=== PATIENT | male | born 1965 | race Caucasian/White ===

== ENCOUNTER 2022-09-27 09:49 | Observation (INO) ==
--- NOTE | 2022-09-12 09:12 | PAT Medication Instructions ---
Medication Instructions Date of Service September 12, 2022 Home Medications Prevagen 1 tab PO QAM aspirin 81 mg chewable tablet 81 mg PO QAM atorvastatin 20 mg tablet 20 mg PO HS coenzyme Q10 100 mg capsule (CoQ-10) 100 mg PO QAM loratadine 10 mg tablet (Claritin) 10 mg PO QAM multivitamin 1 tab PO QAM omeprazole magnesium 20 mg tablet,delayed release (Prilosec OTC) 20 mg PO QAM ASK your prescriber and surgeon aspirin 81 mg chewable tablet 81 mg PO QAM STOP taking 2 weeks before surgery (or as soon as possible if surgery is within 2 weeks) Prevagen 1 tab PO QAM coenzyme Q10 100 mg capsule (CoQ-10) 100 mg PO QAM DO NOT take the morning of surgery loratadine 10 mg tablet (Claritin) 10 mg PO QAM multivitamin 1 tab PO QAM Take morning of surgery With a small sip of water, OTHERWISE NOTHING TO EAT OR DRINK AFTER MIDNIGHT: omeprazole magnesium 20 mg tablet,delayed release (Prilosec OTC) 20 mg PO QAM Take evening before surgery atorvastatin 20 mg tablet 20 mg PO HS Other Notes If you have any questions please call us at [phone] or [phone] or [phone] or [phone]
--- NOTE | 2022-09-14 13:50 | Anesthesiology Consultation ---
Date of Service September 14, 2022 Assessment & Plan (1) Encounter for pre-operative examination: Chart Review Chart Review: Acceptable Risk for Surgery (pending PCP clearance (09/14)) and Patient seen in Pre Admission Testing Awaiting PCP clearance scheduled 09/14/22 Per PAT appt on 06/15/22, patient denies any recent travel or large group activities. No known Covid positive exposures or Covid related symptoms. No known Covid infection in the past 90 days. Will leave to surgeon's discretion if preop Covid testing needed. Pt is fully vaccinated for Covid. Educated on importance of using Covid precautions one week prior to surgery History Surgery Operation Date: 09/27/22 07:45 Proposed Procedures p L5-S1 Decompression and Fusion, Spinal Cord Monitoring - Vicente Díaz DO Height/Weight Height: 5 ft 6 in Weight: 85.3 kg Allergies Allergy/AdvReac Type Severity Reaction Status Date / Time naproxen AdvReac Unknown "tears my Verified 09/11/22 13:06 stomach up bad" Medications Home Medications Medication Instructions Recorded Confirmed Last Taken Prevagen 1 tab PO QAM 09/11/22 09/11/22 Unknown aspirin 81 mg chewable tablet 81 mg PO QAM 09/11/22 09/11/22 Unknown atorvastatin 20 mg tablet 20 mg PO HS 09/11/22 09/11/22 Unknown coenzyme Q10 100 mg capsule 100 mg PO QAM 09/11/22 09/11/22 Unknown (CoQ-10) loratadine 10 mg tablet (Claritin) 10 mg PO QAM 09/11/22 09/11/22 Unknown multivitamin 1 tab PO QAM 09/11/22 09/11/22 Unknown omeprazole magnesium 20 mg 20 mg PO QAM 09/11/22 09/11/22 Unknown tablet,delayed release (Prilosec OTC) Past Medical History Medical History GERD (gastroesophageal reflux disease) Well controlled and stable History of COVID-19 10/2020, home test and CDC test at the tranfer station; mild head cold for 2 days, fatigue>resolved. Hx of fracture of nose History of; multiple fracture incidents - no recent issues No breathing issues related to nasal septum Hx of seasonal allergies Hyperlipidemia Sleep apnea No current treatment; CPAP recalled Spondylolisthesis, multiple sites in spine Exercise / Class Metabolic Activity II 4-5 Yardwork/Stairs/Walk up hill (one flight of stairs - no chest pain or SOB ) Past Surgical History Surgical History History of esophagogastroduodenoscopy (EGD) Hx of arthroscopic knee surgery Hx of colonoscopy Past Anesthesia History No Hx of Anesthesia Complications and No Family Hx of Anesthesia Complications History of PONV No Hx of PONV and No Hx of Motion Sickness Social History Smoking Status: Current some day smoker tobacco type: cigars Smoking cigarettes per day: 3-4 per year Do You Dip or Chew Tobacco: No Hx Alcohol Use: Yes Alcohol type: beer and hard liquor alcohol intake frequency: a few times a week Hx Substance Use: No substance use type: does not use Review of Systems Patient denies chest pain, shortness of breath, dyspnea on exertion, cough, wheezing, palpitations. No hx of seizures, stroke, [place]. No hx of blood clots or blood transfusions Physical Exam Vital Signs VITALS BP 156/71 P 89 TEMP 98.6 SP02 97% RES 16P Constitutional no acute distress ENMT Mouth: no TMJ clicking Thyromental Distance: > or= 3.5 Finger Breadths (4.0) Mallampati Class: I Crowns to molars Neck + limited neck extension (minimal) and + facial hair (advised to shave ) Respiratory normal respiratory effort; no respiratory distress Auscultation: lungs clear to auscultation bilaterally; no wheezes Cardiovascular Rate/Rhythm: regular rate and regular rhythm Heart Sounds: no murmur Vessels: no carotid bruit Musculoskeletal Spine: no pain with cervical ROM Extremities: extremities normal to inspection Psychiatric Orientation: alert Lab Results Anesthesia Preop Results Results Anesthesia Widget: WBC 6.68 K/ul (4.8-10.8) 09/14/22 Hgb 14.2 g/dl (14.0-18.0) 09/14/22 Hct 41.0 % (40.1-51.0) 09/14/22 Plt 188 K/uL (130-400) 09/14/22 Na 138 mmol/L (136-145) 09/14/22 K 3.7 mmol/L (3.5-5.1) 09/14/22 Cl 104 mmol/L (98-107) 09/14/22 CO2 28 mmol/L (21-32) 09/14/22 BUN 13 mg/dl (6-23) 09/14/22 Creat 0.86 mg/dl (0.6-1.4) 09/14/22 Glucose Level 107 mg/dl (70-99(Fasting)) H 09/14/22 PT 11.3 Seconds (9.0-12.0) 09/14/22 PTT 30.4 Seconds (21.0-31.0) 09/14/22 INR 1.1 (0.9-1.1) 09/14/22 Urine Color Yellow 09/14/22 Urine Appearance Clear (Clear) 09/14/22 Urine pH 6.5 (4.5-7.5) 09/14/22 Urine Specific [place] 1.012 (1.000-1.030) 09/14/22 Urine Protein Negative (Negative) 09/14/22 Urine Glucose (UA) Negative (Negative) 09/14/22 Urine Ketones Negative (Negative) 09/14/22 Urine Blood Negative (Negative) 09/14/22 Urine Nitrite Negative (Negative) 09/14/22 Urine Bilirubin Negative (Negative) 09/14/22 Urine Urobilinogen Negative (Negative) 09/14/22 Urine Leukocyte Esterase Negative (Negative) 09/14/22 Blood Type O Positive 09/14/22 Antibody Screen NEGATIVE 09/14/22 Testing Electrocardiogram Date: 09/14/22 Findings: + NSR @ (82bpm) Incomplete RBBB. Chest X-Ray Date: 09/14/22 Findings: + NAD
[~2022-09-27 09:49] MED LIST: ACETAMINOPHEN 500 MG TAB PO SCH; CeleBREX 200 MG CAP PO SCH; GABAPENTIN 600 MG DOSE PO SCH; LR 15ML/HR IV SCH; ceFAZolin 2000MG 2,000 MG/15 ML SYR IV SCH
[2022-09-27] MEDS ORDERED: fentaNYL citrate 100 MCG/2 ML VIAL ONE (10:38)
[2022-09-27] MEDS ORDERED: PROPOFOL IV EMULSION 10 MG/ML 20 ML VIAL IV ONE (10:38)
[2022-09-27] MEDS ORDERED: LIDOCAINE 2% 20 MG/ML 5 ML SYR IV ONE (10:38)
[2022-09-27] MEDS ORDERED: ROCURONIUM BROMIDE 10 MG/ML 5 ML VIAL IV ONE ×3 (10:38→12:11)
[2022-09-27] MEDS ORDERED: MIDAZOLAM HCL 1 MG/ML 2ML VIAL ONE (10:38)
--- NOTE | 2022-09-27 11:03 | History & Physical Bridge Note ---
Date of Service September 27, 2022 History & Physical Bridge Note I have examined the patient, reviewed the History & Physical and in the interval since the performance of the History & Physical I have noted the following changes of clinical significance: no changes noted
--- NOTE | 2022-09-27 11:04 | History & Physical Report ---
Date of Service September 27, 2022 Assessment & Plan (1) Neurogenic claudication due to lumbar spinal stenosis: Plan: L5-S1 decompression and fusion History of Present Illness Chief Complaint: Back and leg pain Primary Care Provider: Ad Sanders MD This is a 49-year-old male presents with chronic persistent back and leg pain. Failed extensive course of nonoperative care is here for surgical invention. Allergies Allergy/AdvReac Type Severity Reaction Status Date / Time naproxen AdvReac Unknown "tears my Verified 09/27/22 10:15 stomach up bad" Home Medications Medication Instructions Recorded Confirmed Type Prevagen 1 tab PO QAM 09/11/22 09/27/22 History aspirin 81 mg chewable tablet 81 mg PO QAM 09/11/22 09/27/22 History atorvastatin 20 mg tablet 20 mg PO HS 09/11/22 09/27/22 History coenzyme Q10 100 mg capsule 100 mg PO QAM 09/11/22 09/27/22 History (CoQ-10) loratadine 10 mg tablet (Claritin) 10 mg PO QAM 09/11/22 09/27/22 History multivitamin 1 tab PO QAM 09/11/22 09/27/22 History omeprazole magnesium 20 mg 20 mg PO QAM 09/11/22 09/27/22 History tablet,delayed release (Prilosec OTC) Past Med/Surg History Medical History GERD (gastroesophageal reflux disease) Well controlled and stable History of COVID-19 10/2020, home test and CDC test at the tranfer station; mild head cold for 2 days, fatigue>resolved. Hx of fracture of nose History of; multiple fracture incidents - no recent issues No breathing issues related to nasal septum Hx of seasonal allergies Hyperlipidemia Sleep apnea No current treatment; CPAP recalled Spondylolisthesis, multiple sites in spine Surgical History History of esophagogastroduodenoscopy (EGD) Hx of arthroscopic knee surgery Hx of colonoscopy Social History Smoking Status: Current some day smoker Cigarettes Per Day: 3-4 per year; Second Hand Exposure: No; Do You Dip or Chew Tobacco: No; Tobacco Cessation Education Requested by Patient: No Hx Alcohol Use: Yes Alcohol type: beer and hard liquor Hx Substance Use: No Preferred Language: Telugu Communication Ability: Effective Filter Press Pumper Required: No Beliefs That Will Affect Care: None Current Living Situation: Spouse Other Information That Helps Us Care for You: No Feels Safe at Home: Yes Safety Concerns: Feels Safe At This Time Assistive Devices: Hearing Aid - Left Assistive Devices Comment: doesn't wear his WORKMAN often Physical Exam Physical Exam: Patient is alert and oriented Heart regular rhythm Lungs clear Results & Data Results & Data ([facility]) Vital Signs (Past 12 Hours) Vital Signs Temp Pulse Resp BP Pulse Ox O2 Del Method 09/27/22 10:19 Room Air 09/27/22 10:19 36.7 C 60 20 172/89 H 98 Room Air
[2022-09-27] MEDS ORDERED: ePHEDrine sulfate 50 MG/ML AMP IV PRN (11:06)
[2022-09-27] MEDS ORDERED: fentaNYL citrate 100 MCG/2 ML VIAL IV PRN (11:06)
[2022-09-27] MEDS ORDERED: ONDANSETRON INJ 2 MG/ML 2 ML VIAL IV PRN ×2 (11:06→15:29)
[2022-09-27] MEDS ORDERED: HYDROmorphone INJ 2 MG/ML SYR/VIAL IV PRN (11:06)
[2022-09-27] MEDS ORDERED: ATROPINE SULFATE 0.1 MG/ML 10ML SYR IV PRN (11:06)
[2022-09-27] MEDS ORDERED: BUPIVACAINE/EPINEPHRINE 0.25% 1:200,000 30 ML VIAL ONE (11:12)
[2022-09-27] MEDS ORDERED: ceFAZolin 330 MG/ML 1 GM VIAL ONE (11:12)
[2022-09-27] MEDS ORDERED: FLOSEAL HEMOSTATIC MATRIX 10ML TOP ONE (12:11)
[2022-09-27] MEDS ORDERED: ePHEDrine sulfate 50 MG/ML SYR ONE (12:23)
[2022-09-27] MEDS ORDERED: DEXAMETHASONE SOD INJ 4 MG/ML VIAL ONE (12:31)
--- NOTE | 2022-09-27 13:20 | Operative Report ---
Post Operative Report Pre & Post Diagnosis Operation Date: 09/27/22 11:25 Pre-Op Diagnosis: Spondylolisthesis, Lumbar Region Post-Op Diagnosis: Spondylolisthesis, Lumbar Region I identified the patient and participated in the time-out.: Yes Procedure Operation Date: 09/27/22 11:25 Actual Procedures #1 lumbar decompression with bilateral medial facetectomies and foraminotomies L4-L5 L5-S1. #2 posterior spinal fusion L5-S1. #3 placement posterior instrumentation L5-S1. #4 interbody fusion L5-S1. #5 placement of Spira 15 x 26 mm cage at L5-S1. #6 placement locally harvested morselized autograft in the posterior gutters. #7 placement of I factor model V toss interbody space and posterior gutters. Surgeon Vicente Díaz, Motor Vehicles Inspector Yue Velasquez Estimated Blood Loss 200 Findings Consistent with Post-Op Diagnosis Specimens None Indications This is a 49-year-old male who presents above-mentioned diagnosis after failed extensive course of nonoperative care is here for surgical invention. Description of Procedure Patient was met with identified informed consent obtained. Patient was then taken to the operative suite underwent a patient placed in a prone position the [place] table top Jabier frame. All bony prominences well-padded eyes inspected to ensure no external pressure placed upon the. This point the lumbar spine was prepped and draped in normal sterile fashion. Sharp dissection with the assistance of Bovie cardiac form down to and exposing the lamina and transverse processes of L5 and sacral ala bilaterally. From caudal to cephalad fashion complete laminectomy of L5 partial laminectomy of L4 was performed including bilateral medial facetectomies and foraminotomies addressing severe spinal stenosis. Pedicle screws were placed in L5 and S1 levels bilaterally with assistance of fluoroscopy and the properly sized paz placed. By way of transfor aminal approach on the right complete discectomy of L5-S1 was performed endplates curetted to subcortical bleeding bone and a 15 x 26 mm spiral cage with I factor tapped in position. The rods then compressed locked into final position bilaterally. The transverse processes of L5 and sacral ala burred to subcortical bleeding bone. I factor combined with V toss and locally harvested morselized autograft was placed in the posterior gutters. 15 round JOSEFINA drain inserted. Incision was then closed with 1 Vicryl the fascia 2-0 Vicryl subcutaneously and 4 Monocryl for final skin closure. Steri-Strip sterile dressings placed. Patient waken taken to PACU in stable condition. Please note spinal cord monitoring was utilized at the procedure no changes noted. Lastly Yue Velasquez was present at the entire surgery involved the patient positioning complex portions of the surgery and final skin closure. I attest to the content of the Intraoperative Record and any orders documented therein. Any exceptions are noted below.
--- NOTE | 2022-09-27 14:00 | Fluoroscopy Report ---
INTRAOPERATIVE RADIOGRAPHS CLINICAL HISTORY: L5-S1 spinal fusion. Fluoroscopy time: 21 seconds. FINDINGS: 2 spot fluoroscopic views of the lumbar spine are presented. There has been discectomy at L 5-S1 with laminectomy and posterior fusion at this level. Interpedicular screws are in place. There i s minimal anterolisthesis at L5-S1. The orthopedic hardware appears intact. IMPRESSION: Intraoperative images from L5-S1 spinal fusion as above. Electronically signed by: Figueroa Ji M.D. 09/27/2022 1:59 PM
--- NOTE | 2022-09-27 14:19 | Anesthesiology Progress Note ---
Date of Service September 27, 2022 Anesthesia Post Procedure Vital Signs Vital Signs: Temp Pulse Pulse Resp BP Pulse Ox O2 Del Method 09/27/22 14:10 55 L 12 116/68 97 Room Air 09/27/22 14:00 61 19 134/78 100 Oxymask 09/27/22 13:50 69 12 115/77 99 Oxymask 09/27/22 13:42 36.3 C L 91 H 16 119/87 96 Oxymask 09/27/22 10:19 Room Air 09/27/22 10:19 36.7 C 60 20 172/89 H 98 Room Air O2 Flow Rate 09/27/22 14:10 09/27/22 14:00 2 09/27/22 13:50 6 09/27/22 13:42 6 09/27/22 10:19 09/27/22 10:19 Pain Intensity Bilateral Back: Pain Intensity: 1 Back: Pain Intensity: 3 Transfer of Care Handoff Completed per policy Notes Mental Status: alert / awake / arousable and participated in evaluation Patient Amnestic to Procedure: Yes Nausea / Vomiting: adequately controlled Pain: adequately controlled Airway Patency, RR, SpO2: stable & adequate BP & HR: stable & adequate Hydration State: stable & adequate Anesthetic Complications: no major complications apparent and Pt Satisfied with anesthetic care
[2022-09-27] MEDS ORDERED: LORazepam 0.5 MG TAB PO PRN (15:29)
[2022-09-27] MEDS ORDERED: LORazepam 0.5 MG in SYRINGE 0 ML IV PRN (15:29)
[2022-09-27] MEDS ORDERED: DO NOT ADMINISTER FLU VACCINE PRN (15:29)
[2022-09-27] MEDS ORDERED: HYDROmorphone INJ 1 MG/ML SYRINGE IV PRN (15:29)
[2022-09-27] MEDS ORDERED: PROMETHAZINE HCL 12.5 MG in SODIUM CHLORIDE 0.9% 50 ML IV PRN (15:29)
[2022-09-27] MEDS ORDERED: METOCLOPRAMIDE HCL INJ 5 MG/ML 2 ML VIAL IV PRN (15:29)
[2022-09-27] MEDS ORDERED: hydrOXYzine HCl 25 MG TAB PO PRN (15:29)
[2022-09-27] MEDS ORDERED: bisacodyL 10 MG SUPP PR PRN (15:29)
[2022-09-27] MEDS ORDERED: ACETAMINOPHEN 1,000 MG/100 ML VIAL IV PRN (15:29)
[2022-09-27] MEDS ORDERED: ALUMINUM/MAGNESIUM SUSP 30 ML UDC PO PRN (15:29)
[2022-09-27] MEDS ORDERED: ONDANSETRON 4 MG OD TAB PO PRN (15:29)
[2022-09-27] MEDS ORDERED: FAMOTIDINE 20 MG TAB PO PRN (15:29)
[2022-09-27] MEDS ORDERED: NALOXONE HCL 0.4 MG/1 ML VIAL/CARP IV PRN (15:29)
[2022-09-27] MEDS ORDERED: diphenhydrAMINE Capsule 25 MG CAP PO PRN (15:29)
[2022-09-27] MEDS ORDERED: MAGNESIUM HYDROXIDE SUSP 30 ML UDC PO PRN (15:29)
[2022-09-27] MEDS ORDERED: traMADol HCL 50 MG TABLET PO PRN (15:29)
[2022-09-27] MEDS ORDERED: oxyCODONE HCL IR 5 MG TAB (IMMEDIATE RELEASE) PO PRN (15:29)
[2022-09-27] MEDS ORDERED: DO NOT ADMINISTER PNEUMOCOCCAL VACCINE PRN (15:29)
[2022-09-27] MEDS ORDERED: SOD PHOSPHATE/SOD BIPHOSPHATE ENEMA 132 ML BTL PR PRN (15:29)
[2022-09-27] MEDS: LACTATED RINGER'S 1,000 ML IV SCH (15:46)
[2022-09-27] MEDS: HYDROmorphone INJ 0.5 MG/0.5 ML SYR IV PRN (17:20)
--- NOTE | 2022-09-27 17:57 | Hospitalist Consultation ---
Date of Consultation September 27, 2022 Assessment & Plan (1) Neurogenic claudication due to lumbar spinal stenosis: POD#0 L5-S1 decompression and fusion by Dr. Díaz Activity and wound care orders as per ortho Pain control with bowel regimen PT/OT Monitor H/H for acute blood loss anemia and transfuse blood products PRN EBL 200 cc (2) Sleep apnea: Patient has not had a CPAP at home due to his home device being recalled CPAP ordered while inpatient according to previous outpatient settings (3) GERD (gastroesophageal reflux disease): Continue PPI (4) Hyperlipidemia: Continue statin (5) DVT prophylaxis: TEDs/SCDs as per spine Ortho Thank you for this consultation. We will follow the patient with you during their hospital stay. You can reach a [facility] via the [facility] role in [place] Text. Supervising Physician Co-Signing Physician Notes I have seen and examined the patient and have discussed the case with the provider above. I agree with the assessment and plan as stated. 57 yo M s/p lumbar spine surgery. Doing well post operatively. Denies pain or numbess in legs. Pain is well managed with medications. No chest pain or SOB. My exam reflects that listed above. Cont post op management per ortho spine and cont medical management as outlined above. DO Otilio History of Present Illness Reason for Consultation: Postop medical management Requesting Physician: Dr. Díaz Attending Physician: Vicente Díaz DO History of Present Illness 57-year-old male with PMH dyslipidemia, YOMI, GERD, seasonal allergies, and other problems listed below who is s/p L5-S1 decompression and fusion today by Dr. Díaz. Postoperatively, the patient is doing well. He reports his pain is well controlled. He denies numbness, tingling, weakness of the lower extremities. No chest pain or shortness of breath. He denies abdominal pain and nausea. He has not voided since surgery. Allergies Allergy/AdvReac Type Severity Reaction Status Date / Time naproxen AdvReac Unknown "tears my Verified 09/27/22 10:15 stomach up bad" Home Medications Medication Instructions Recorded Confirmed Type Prevagen 1 tab PO QAM 09/11/22 09/27/22 History aspirin 81 mg chewable tablet 81 mg PO QAM 09/11/22 09/27/22 History atorvastatin 20 mg tablet 20 mg PO HS 09/11/22 09/27/22 History coenzyme Q10 100 mg capsule 100 mg PO QAM 09/11/22 09/27/22 History (CoQ-10) loratadine 10 mg tablet (Claritin) 10 mg PO QAM 09/11/22 09/27/22 History multivitamin 1 tab PO QAM 09/11/22 09/27/22 History omeprazole magnesium 20 mg 20 mg PO QAM 09/11/22 09/27/22 History tablet,delayed release (Prilosec OTC) Patient History Medical History GERD (gastroesophageal reflux disease) Well controlled and stable History of COVID-19 10/2020, home test and CDC test at the tranfer station; mild head cold for 2 days, fatigue>resolved. Hx of fracture of nose History of; multiple fracture incidents - no recent issues No breathing issues related to nasal septum Hx of seasonal allergies Hyperlipidemia Sleep apnea No current treatment; CPAP recalled Spondylolisthesis, multiple sites in spine Surgical History History of esophagogastroduodenoscopy (EGD) Hx of arthroscopic knee surgery Hx of colonoscopy Family History (Updated 09/27/22 @ 17:54 by GODFREY Sams) Father Hypertension Mother Hypertension Social History Smoking Status: Current some day smoker Cigarettes Per Day: 3-4 per year; Second Hand Exposure: No; Do You Dip or Chew Tobacco: No; Tobacco Cessation Education Requested by Patient: No Hx Alcohol Use: Yes Alcohol type: beer and hard liquor Hx Substance Use: No Preferred Language: Greek Communication Ability: Effective Barrel Rifler Hook Required: No Beliefs That Will Affect Care: None Current Living Situation: Spouse Other Information That Helps Us Care for You: No Feels Safe at Home: Yes Safety Concerns: Feels Safe At This Time Assistive Devices: Hearing Aid - Left Assistive Devices Comment: doesn't wear his WORKMAN often Review of Systems Review of Systems: ROS per HPI, all other systems reviewed and negative Physical Exam Constitutional: WD/WN, vitals as above Eyes: PERRL, conjunctivae normal, anicteric sclerae ENMT: external ear and nose normal, oropharynx normal Respiratory: normal respiratory effort, lungs clear to auscultation Cardiovascular: Rate/Rhythm: regular rate and regular rhythm Vessels: normal peripheral pulses Extremities: no edema Gastrointestinal (Abdomen): normal bowel sounds, soft, nontender, no hepatosplenomegaly Musculoskeletal: no cyanosis or clubbing, extremities motor strength 5/5 S/p back surgery, pedal pushes and pull strong bilaterally, drain in place draining bloody drainage Skin: no rashes, warm and dry Neurologic: no focal motor deficits Psychiatric: A+Ox3, euthymic affect Results & Data Results & Data ([facility]) Vital Signs (Past 12 Hours) Vital Signs Temp Pulse Pulse Pulse Resp BP BP 09/27/22 17:21 88 16 129/82 09/27/22 16:17 75 18 126/74 09/27/22 15:44 51 L 16 135/81 09/27/22 15:11 36.6 C 74 16 124/74 09/27/22 14:50 62 12 125/63 09/27/22 14:20 36.8 C 69 12 136/72 09/27/22 14:10 55 L 12 116/68 09/27/22 14:00 61 19 134/78 09/27/22 13:50 69 12 115/77 09/27/22 13:42 36.3 C L 91 H 16 119/87 09/27/22 10:19 09/27/22 10:19 36.7 C 60 20 172/89 H Pulse Ox O2 Del Method O2 Flow Rate 09/27/22 17:21 95 Room Air 09/27/22 16:17 96 Room Air 09/27/22 15:44 96 Room Air 09/27/22 15:11 94 Room Air 09/27/22 14:50 99 Room Air 09/27/22 14:20 95 Room Air 09/27/22 14:10 97 Room Air 09/27/22 14:00 100 Oxymask 2 09/27/22 13:50 99 Oxymask 6 09/27/22 13:42 96 Oxymask 6 09/27/22 10:19 Room Air 09/27/22 10:19 98 Room Air Medications Administered Current Inpatient Medications Acetaminophen (Acetaminophen 500 Mg Tab) 1,000 mg PO Q8H PRN PRN Reason: MILD Pain Scale 1,2,3 & Pre PT Stop: 10/27/22 15:28 Al Hydrox/Mg Hydrox/Simethicone (Aluminum/Magnesium Susp 30 Ml Udc) 30 ml PO Q6H PRN PRN Reason: Dyspepsia Stop: 10/27/22 15:28 Aspirin (Aspirin 81 Mg Ectab) 81 mg PO QAM JASBIR Stop: 10/28/22 08:59 Atorvastatin Calcium (Atorvastatin 20 Mg Tab) 20 mg PO HS JASBIR Stop: 10/27/22 20:59 Bisacodyl (Bisacodyl 10 Mg Supp) 10 mg MO DAILY PRN PRN Reason: Constipation Stop: 10/27/22 15:28 Diphenhydramine HCl (Diphenhydramine Capsule 25 Mg Cap) 25 mg PO Q6H PRN PRN Reason: Allergic Rhinitis/Insomnia Stop: 10/27/22 15:28 Famotidine (Famotidine 20 Mg Tab) 20 mg PO Q12H PRN PRN Reason: Dyspepsia Stop: 10/27/22 15:28 Hydromorphone HCl (Hydromorphone Inj 0.5 Mg/0.5 Ml Syr) 0.5 mg IV Q3H PRN PRN Reason: MODERATE Pain (Scale 4,5,6) & Pre PT Stop: 10/11/22 15:28 Last Admin: 09/27/22 17:20 Dose: 0.5 mg Hydromorphone HCl (Hydromorphone Inj 1 Mg/Ml Syringe) 1 mg IV Q3H PRN PRN Reason: SEVERE Pain (Scale 7,8,9,10) Stop: 10/11/22 15:28 Hydroxyzine HCl (Hydroxyzine Hcl 25 Mg Tab) 25 mg PO Q8H PRN PRN Reason: Anxiety Stop: 10/27/22 15:28 Lactated Ringer's (Lr) 1,000 mls @ 100 mls/hr IV .Q10H JASBIR Stop: 10/27/22 15:28 Last Admin: 09/27/22 15:46 Dose: 100 mls/hr Promethazine HCl 12.5 mg/ (Sodium Chloride) 50.5 mls @ 202 mls/hr IV Q6H PRN PRN Reason: Nausea &/or Vomiting Stop: 10/27/22 15:28 Acetaminophen (Ofirmev) 1,000 mg in 100 mls @ 400 mls/hr IV Q8H PRN PRN Reason: Pain Rating 1-3 & Pre PT Stop: 09/28/22 15:30 Cefazolin Sodium (Ancef 2000mg) 2,000 mg in 15 mls @ 3.75 mls/min IV Q8H [facility]; Protocol Stop: 09/28/22 03:33 Last Admin: 09/27/22 19:46 Dose: 3.75 mls/min Lorazepam 0.5 mg/ Syringe 0.5 mls @ 2 mls/min IV Q8H PRN PRN Reason: Sedation/Anxiety Stop: 10/27/22 15:28 Dexamethasone 6 mg/ Syringe 1.5 mls @ 1 mls/min IV DAILY [facility] Stop: 09/30/22 09:02 Influenza Virus Vaccine Quadrival (Do Not Administer Flu Vaccine) 1 each N/A PRN PRN PRN Reason: Notification Stop: 10/27/22 15:28 Loratadine ([facility] 10 Mg Tab) [facility] Stop: 10/28/22 08:59 Lorazepam (Lorazepam 0.5 Mg Tab) 0.5 mg PO Q8H PRN PRN Reason: Sedation/Anxiety Stop: 10/27/22 15:28 Magnesium Hydroxide (Magnesium Hydroxide Susp 30 Ml Udc) 30 ml PO Q24H PRN PRN Reason: Constipation Stop: 10/27/22 15:28 Metoclopramide HCl (Metoclopramide Hcl Inj 5 Mg/Ml 2 Ml Vial) 10 mg IV Q6H PRN PRN Reason: Nausea &/or Vomiting Stop: 10/27/22 15:28 Multivitamins (Multivitamin Tab) 1 tab PO [facility] Stop: 10/28/22 08:59 Naloxone HCl (Naloxone Hcl 0.4 Mg/1 Ml Vial/Carp) 0.1 mg IV Q5M PRN PRN Reason: Oversedation/Resp depression Stop: 10/27/22 15:28 Ondansetron HCl (Ondansetron Inj 2 Mg/Ml 2 Ml Vial) 4 mg IV Q6H PRN PRN Reason: Nausea &/or Vomiting Stop: 10/27/22 15:28 Ondansetron HCl (Ondansetron 4 Mg Od Tab) 4 mg PO Q6H PRN PRN Reason: Nausea Stop: 10/27/22 15:28 Oxycodone HCl (Oxycodone Hcl Ir 5 Mg Tab (Immediate Release)) 5 - 10 mg PO Q4H PRN PRN Reason: Pain & Pre PT Stop: 10/11/22 15:28 Pantoprazole Sodium (Pantoprazole 40 Mg Tab) 40 mg PO QAM JASBIR Stop: 10/28/22 08:59 Pneumococcal Polyvalent Vaccine (Do Not Administer Pneumococcal Vaccine) 1 each N/A PRN PRN PRN Reason: Notification Stop: 10/27/22 15:28 Polyethylene Glycol (Polyethylene (Miralax) 17 Gm Pack) 17 gm PO Q6 JASBIR Stop: 10/28/22 05:59 Senna/Docusate Sodium (Docusate Sodium/Senna 50/8.6mg Tab) 2 tab PO HS JASBIR Stop: 10/27/22 20:59 Sodium Biphosphate/Sodium Phosphate (Sod Phosphate/Sod Biphosphate Enema 132 Ml Btl) 132 ml MO ONE PRN PRN Reason: Constipation Stop: 10/27/22 15:28 Tramadol HCl (Tramadol Hcl 50 Mg Tablet) 50 - 100 mg PO Q4H PRN PRN Reason: Moderate-Severe pain & Pre PT Stop: 10/27/22 15:28
[2022-09-27] MEDS: ceFAZolin 2000MG 2,000 MG/15 ML SYR IV SCH (19:46)
[2022-09-27] MEDS: DOCUSATE SODIUM/SENNA 50/8.6MG TAB PO SCH (20:38)
[2022-09-27] MEDS: ATORVASTATIN 20 MG TAB PO SCH (20:38)
[2022-09-28] MEDS: LACTATED RINGER'S 1,000 ML IV SCH (01:09)
[2022-09-28] MEDS: HYDROmorphone INJ 0.5 MG/0.5 ML SYR IV PRN (03:00)
[2022-09-28] MEDS: ceFAZolin 2000MG 2,000 MG/15 ML SYR IV SCH (03:00)
[2022-09-28] MEDS: POLYETHYLENE (MIRALAX) 17 GM PACK PO SCH ×4 (05:22→23:20)
[2022-09-28 07:30] LABS: Basophils # (auto) 0.01 K/uL (0-0.2); Basophils % (auto) 0.1 %; Hematocrit (blood only) 36.4 % (40.1-51.0); Hemoglobin 12.6 g/dl (14.0-18.0); Immature Granulocytes # (auto) 0.05 K/uL (0.00-0.02); Immature Granulocytes % (auto) 0.4 %; Lymphocytes # (auto) 0.85 K/uL (1.2-3.4); Lymphocytes % (auto) 6.4 %; Mean Corpuscular Hemoglobin 30.4 pg (25.0-34.0); Mean Corpuscular Hgb Conc 34.6 g/dL (32.0-36.0); Mean Corpuscular Volume 87.9 fL (80.0-100.0); Mean Platelet Volume 9.4 fL (9.4-12.4); Monocytes # (auto) 1.21 K/uL (0.24-0.82); Monocytes % (auto) 9.1 %; Neutrophils # (auto) 11.18 K/uL (1.4-6.5); Platelet Count 196 K/uL (130-400); RDW Coefficient of Variation 12.7 % (11.5-14.5); RDW Standard Deviation 40.6 fL (36.4-46.3); Red Blood Count 4.14 M/uL (4.63-6.08)
[2022-09-28 07:54] LABS: Calcium 8.8 mg/dl (8.5-10.1); Creatinine Clr Calc Pharmacy 102.5 ml/min; Est GFR (African American) 114.7 ml/min; Potassium 4.1 mmol/L (3.5-5.1)
[2022-09-28] MEDS ORDERED: NON-FORMULARY MEDICATION (Coenzyme Q10 [Coq-10] 100 mg Capsule) PO SCH (09:00)
[2022-09-28] MEDS ORDERED: NON-FORMULARY MEDICATION (Prevagen 1 TAB) PO SCH (09:00)
[2022-09-28] MEDS: LORATADINE 10 MG TAB PO SCH ×2 (09:24→10:40)
[2022-09-28] MEDS: MULTIVITAMIN TAB PO SCH (09:24)
[2022-09-28] MEDS: ASPIRIN 81 MG ECTAB PO SCH (09:24)
[2022-09-28] MEDS: dexAMETHasone 6 MG in SYRINGE 0 ML IV SCH (09:24)
[2022-09-28] MEDS: PANTOprazole 40 MG TAB PO SCH (09:25)
[2022-09-28] MEDS ORDERED: Nursing to Pharmacy Communication SCH (10:15)
--- NOTE | 2022-09-28 11:18 | Orthopedic Progress Note ---
Date of Service September 28, 2022 Assessment & Plan (1) Neurogenic claudication due to lumbar spinal stenosis: Plan: Today we will initiate physical therapy monitor his JOSEFINA output possible discharge home tomorrow. Admission and Anticipated Discharge Date Admission Date: September 27, 2022 Subjective Patient's back pain is controlled leg symptoms improved Physical Exam Physical Exam: Patient is comfortable. Is good strength testing. Results & Data ([facility]) Vital Signs (Past 12 Hours) Vital Signs Temp Pulse Pulse Resp BP Pulse Ox O2 Del Method 09/28/22 08:43 36.9 C 74 18 142/77 H 97 Room Air 09/28/22 03:00 36.8 C 83 16 132/70 96 CPAP 09/28/22 03:00 99 H 12 94 09/28/22 01:19 100 H 25 H 94 09/27/22 23:47 37.2 C 105 H 18 144/85 H 94 Room Air
--- NOTE | 2022-09-28 11:56 | Hospitalist Progress Note ---
Date of Service September 28, 2022 Assessment & Plan (1) Neurogenic claudication due to lumbar spinal stenosis: Plan: POD#1 L5-S1 decompression and fusion by Dr. Díaz Activity and wound care orders as per ortho Pain control with bowel regimen PT/OT Current Hgb 12.6 (down from 14 pre-op) This is expected, post-op vs. dilutional, no need for blood transfusion Monitor H/H for acute blood loss anemia and transfuse blood products PRN (2) Sleep apnea: Plan: Patient has not had a CPAP at home due to his home device being recalled CPAP ordered while inpatient according to previous outpatient settings (3) GERD (gastroesophageal reflux disease): Plan: Continue PPI (4) Hyperlipidemia: Plan: Continue statin (5) DVT prophylaxis: Plan: TEDs/SCDs as per spine Ortho Thank you for this consultation. We will follow the patient with you during their hospital stay. You can reach a member of the [facility] Hospitalist Team 21/05 via the [facility] Hospitalist role in [place] Text. Admission and Anticipated Discharge Date Admission Date: September 27, 2022 Subjective Pt seen in follow up of med consult after lumbar spine surgery Patient is currently sitting up in bed, in no acute distress Denies any fevers chills, chest pain, shortness of breath Reports ambulating in hallways Denies any abdominal pain, nausea vomiting Reports voiding without difficulty, passing flatus, no BM Pain seems to be reasonably controlled Review of Systems Review of Systems: All systems reviewed & are unremarkable except as noted in Subjective Physical Exam 2 Physical Exam: Constitutional:L WD/WN, vitals as a rosario Eyes: PERRL, EOMI, conju nctivae normal, an icteric sclerae ENMT: external ear and n ose normal, oropha rynx normal Respiratory: normal respiratory effort, lungs tyrone ar to auscultation Cardiovascular:L Rate/Rhythm: regul ar rate and regula r rhythm Vessels: normal peripheral pulses Extremiti es: no edema Gastrointestinal ( Abdomen): normal bowel sound s, soft, nontender Musculoskeletal: extremities motor strength 5/5 S/p back surgery, ped al pushes and pull strong bilaterall y, drain in place draining serosang. drainage Skin: no rashes, warm an d dry Neurologic: no focal motor def icits Psychiatric: A+Ox3, euthymic af fect Results & Data Results & Data ([facility]) Vital Signs (Past 12 Hours) Vital Signs Temp Pulse Pulse Resp BP Pulse Ox O2 Del Method 09/28/22 08:43 36.9 C 74 18 142/77 H 97 Room Air 09/28/22 03:00 36.8 C 83 16 132/70 96 CPAP 09/28/22 03:00 99 H 12 94 09/28/22 01:19 100 H 25 H 94 Laboratory Results 09/28/22 09/28/22 Range/Units 06:47 06:47 WBC 13.30 H (4.8-10.8) K/ul RBC 4.14 L (4.63-6.08) M/uL Hgb 12.6 L (14.0-18.0) g/dl Hct 36.4 L (40.1-51.0) % MCV 87.9 (80.0-100.0) fL MCH 30.4 (25.0-34.0) pg MCHC 34.6 (32.0-36.0) g/dL RDW Std Deviation 40.6 (36.4-46.3) fL RDW Coeff of Wero 12.7 (11.5-14.5) % Plt Count 196 (130-400) K/uL MPV 9.4 (9.4-12.4) fL Immature Gran % (Auto) 0.4 % Neut % (Auto) 84.0 % Lymph % (Auto) 6.4 % [place] % (Auto) 9.1 % Eos % (Auto) 0.0 % Baso % (Auto) 0.1 % Neut # (Auto) 11.18 H (1.4-6.5) K/uL Lymph # (Auto) 0.85 L (1.2-3.4) K/uL [place] # (Auto) 1.21 H (0.24-0.82) K/uL Eos # (Auto) 0.00 (0-0.50) K/uL Baso # (Auto) 0.01 (0-0.2) K/uL Immature Gran # (Auto) 0.05 H (0.00-0.02) K/uL Sodium 139 (136-145) mmol/L Potassium 4.1 (3.5-5.1) mmol/L Chloride 107 (98-107) mmol/L Carbon Dioxide 27 (21-32) mmol/L Anion Gap 5 (3-11) BUN 15 (6-23) mg/dl Creatinine 0.79 (0.6-1.4) mg/dl Est Cr Clr Drug Dosing 102.5 ml/min Est GFR ( Amer) 114.7 ml/min Est GFR (Non-Af Amer) 99.0 ml/min BUN/Creatinine Ratio 19.0 (10-20) Glucose 114 H (70-99(Fasting)) mg/dl Calcium 8.8 (8.5-10.1) mg/dl Medications Administered Current Inpatient Medications Acetaminophen (Acetaminophen 500 Mg Tab) 1,000 mg PO Q8H PRN PRN Reason: MILD Pain Scale 1,2,3 & Pre PT Stop: 10/27/22 15:28 Al Hydrox/Mg Hydrox/Simethicone (Aluminum/Magnesium Susp 30 Ml Udc) 30 ml PO Q6H PRN PRN Reason: Dyspepsia Stop: 10/27/22 15:28 Last Admin: 09/28/22 07:47 Dose: 30 ml Aspirin (Aspirin 81 Mg Ectab) 81 mg PO [facility] Stop: 10/28/22 08:59 Last Admin: 09/28/22 09:24 Dose: 81 mg Atorvastatin Calcium (Atorvastatin 20 Mg Tab) 20 mg PO [facility] Stop: 10/27/22 20:59 Last Admin: 09/27/22 20:38 Dose: 20 mg Bisacodyl (Bisacodyl 10 Mg Supp) 10 mg [place] DAILY PRN PRN Reason: Constipation Stop: 10/27/22 15:28 Diphenhydramine HCl (Diphenhydramine Capsule 25 Mg Cap) 25 mg PO Q6H PRN PRN Reason: Allergic Rhinitis/Insomnia Stop: 10/27/22 15:28 Famotidine (Famotidine 20 Mg Tab) 20 mg PO Q12H PRN PRN Reason: Dyspepsia Stop: 10/27/22 15:28 Hydromorphone HCl (Hydromorphone Inj 0.5 Mg/0.5 Ml Syr) 0.5 mg IV Q3H PRN PRN Reason: MODERATE Pain (Scale 4,5,6) & Pre PT Stop: 10/11/22 15:28 Last Admin: 09/28/22 03:00 Dose: 0.5 mg Hydromorphone HCl (Hydromorphone Inj 1 Mg/Ml Syringe) 1 mg IV Q3H PRN PRN Reason: SEVERE Pain (Scale 7,8,9,10) Stop: 10/11/22 15:28 Hydroxyzine HCl (Hydroxyzine Hcl 25 Mg Tab) 25 mg PO Q8H PRN PRN Reason: Anxiety Stop: 10/27/22 15:28 Promethazine HCl 12.5 mg/ (Sodium Chloride) 50.5 mls @ 202 mls/hr IV Q6H PRN PRN Reason: Nausea &/or Vomiting Stop: 10/27/22 15:28 Acetaminophen (Ofirmev) 1,000 mg in 100 mls @ 400 mls/hr IV Q8H PRN PRN Reason: Pain Rating 1-3 & Pre PT Stop: 09/28/22 15:30 Lorazepam 0.5 mg/ Syringe 0.5 mls @ 2 mls/min IV Q8H PRN PRN Reason: Sedation/Anxiety Stop: 10/27/22 15:28 Dexamethasone 6 mg/ Syringe 1.5 mls @ 1 mls/min IV DAILY [facility] Stop: 09/30/22 09:02 Last Admin: 09/28/22 09:24 Dose: 1 mls/min Influenza Virus Vaccine Quadrival (Do Not Administer Flu Vaccine) 1 each N/A PRN PRN PRN Reason: Notification Stop: 10/27/22 15:28 Loratadine (Loratadine 10 Mg Tab) 10 mg PO QPM [facility] Stop: 10/28/22 20:59 Lorazepam (Lorazepam 0.5 Mg Tab) 0.5 mg PO Q8H PRN PRN Reason: Sedation/Anxiety Stop: 10/27/22 15:28 Magnesium Hydroxide (Magnesium Hydroxide Susp 30 Ml Udc) 30 ml PO Q24H PRN PRN Reason: Constipation Stop: 10/27/22 15:28 Metoclopramide HCl (Metoclopramide Hcl Inj 5 Mg/Ml 2 Ml Vial) 10 mg IV Q6H PRN PRN Reason: Nausea &/or Vomiting Stop: 10/27/22 15:28 Multivitamins (Multivitamin Tab) 1 tab PO QAM [facility] Stop: 10/28/22 08:59 Last Admin: 09/28/22 09:24 Dose: 1 tab Naloxone HCl (Naloxone Hcl 0.4 Mg/1 Ml Vial/Carp) 0.1 mg IV Q5M PRN PRN Reason: Oversedation/Resp depression Stop: 10/27/22 15:28 Ondansetron HCl (Ondansetron Inj 2 Mg/Ml 2 Ml Vial) 4 mg IV Q6H PRN PRN Reason: Nausea &/or Vomiting Stop: 10/27/22 15:28 Ondansetron HCl (Ondansetron 4 Mg Od Tab) 4 mg PO Q6H PRN PRN Reason: Nausea Stop: 10/27/22 15:28 Oxycodone HCl (Oxycodone Hcl Ir 5 Mg Tab (Immediate Release)) 5 - 10 mg PO Q4H PRN PRN Reason: Pain & Pre PT Stop: 10/11/22 15:28 Last Admin: 09/27/22 23:05 Dose: 5 mg Pantoprazole Sodium (Pantoprazole 40 Mg Tab) 40 mg PO QAM JASBIR Stop: 10/28/22 08:59 Last Admin: 09/28/22 09:25 Dose: 40 mg Pneumococcal Polyvalent Vaccine (Do Not Administer Pneumococcal Vaccine) 1 each N/A PRN PRN PRN Reason: Notification Stop: 10/27/22 15:28 Polyethylene Glycol (Polyethylene (Miralax) 17 Gm Pack) 17 gm PO Q6 JASBIR Stop: 10/28/22 05:59 Last Admin: 09/28/22 11:44 Dose: 17 gm Senna/Docusate Sodium (Docusate Sodium/Senna 50/8.6mg Tab) 2 tab PO HS JASBIR Stop: 10/27/22 20:59 Last Admin: 09/27/22 20:38 Dose: 2 tab Sodium Biphosphate/Sodium Phosphate (Sod Phosphate/Sod Biphosphate Enema 132 Ml Btl) 132 ml [place] ONE PRN PRN Reason: Constipation Stop: 10/27/22 15:28 Tramadol HCl (Tramadol Hcl 50 Mg Tablet) 50 - 100 mg PO Q4H PRN PRN Reason: Moderate-Severe pain & Pre PT Stop: 10/27/22 15:28 Last Admin: 09/28/22 09:23 Dose: 50 mg
[2022-09-28] MEDS: ACETAMINOPHEN 500 MG TAB PO PRN (15:07)
[2022-09-28] MEDS: DOCUSATE SODIUM/SENNA 50/8.6MG TAB PO SCH (20:15)
[2022-09-28] MEDS: ATORVASTATIN 20 MG TAB PO SCH (20:15)
[2022-09-28] MEDS ORDERED: LORATADINE 10 MG TAB PO SCH (21:00)
[2022-09-29] MEDS: ACETAMINOPHEN 500 MG TAB PO PRN ×3 (04:37→13:26)
[2022-09-29] MEDS: POLYETHYLENE (MIRALAX) 17 GM PACK PO SCH ×2 (05:13→10:48)
[2022-09-29 08:16] LABS: Hematocrit (blood only) 35.2 % (40.1-51.0); Hemoglobin 12.2 g/dl (14.0-18.0); Mean Corpuscular Hemoglobin 30.7 pg (25.0-34.0); Mean Corpuscular Hgb Conc 34.7 g/dL (32.0-36.0); Mean Corpuscular Volume 88.7 fL (80.0-100.0); Mean Platelet Volume 9.5 fL (9.4-12.4); Platelet Count 192 K/uL (130-400); RDW Standard Deviation 42.2 fL (36.4-46.3); Red Blood Count 3.97 M/uL (4.63-6.08); White Blood Count 12.85 K/ul (4.8-10.8)
[2022-09-29] MEDS: PANTOprazole 40 MG TAB PO SCH (08:27)
[2022-09-29] MEDS: dexAMETHasone 6 MG in SYRINGE 0 ML IV SCH (08:27)
[2022-09-29] MEDS: ASPIRIN 81 MG ECTAB PO SCH (08:27)
[2022-09-29] MEDS: MULTIVITAMIN TAB PO SCH (08:27)
[2022-09-29 08:53] LABS: BUN Creatinine Ratio 21.3 (10-20); Calcium 9.1 mg/dl (8.5-10.1); Est GFR (African American) 117.2 ml/min; Est GFR (Non-African American) 101.1 ml/min
--- NOTE | 2022-09-29 11:19 | Discharge Summary ---
Date of Service September 29, 2022 Admission HPI Per Admitting Provider This is a 49-year-old male presents with chronic persistent back and leg pain. Failed extensive course of nonoperative care is here for surgical invention. Principal Diagnosis Lumbar spinal stenosis with radiculopathy Discharge Data Allergies Allergy/AdvReac Type Severity Reaction Status Date / Time naproxen AdvReac Unknown "tears my Verified 09/27/22 10:15 stomach up bad" Consultations 09/27/22 15:29 Consult Hospitalist Routine Procedures Performed Operation Date: 09/27/22 11:25 Actual Procedures p L5-S1 Decompression and Fusion, Spinal Cord Monitoring(Not Applicable) - Vicente Díaz DO Ordered Studies 09/27/22 11:25 FL lumbar spine 2-3V Routine Hospital Course (1) Neurogenic claudication due to lumbar spinal stenosis: Patient underwent lumbar decompression fusion tolerated so was taken to orthopedic fracture. Postop day 1 is up and ambulating progressed to postop day 2. Excellent strength testing. JOSEFINA drain decreasing appropriately. Socially discharged home. Discharge orders and instructions from the chart for further review. Total Time Total Time Spent Total Time Spent (In Minutes): 20 minutes Discharge Plan Discharge Items Patient Disposition: Home - Self-Care Reason For Visit: Spondylolisthesis, Lumbar Region Discharge Diagnosis: Lumbar spinal stenosis with spondylolisthesis Activity: As commented below Non-emergency contact: Primary Care Provider Call non-emergency contact if: you have any medication questions Follow-up/Referrals: Ad Sanders MD [Primary Care Provider] - Diet: Regular Addtl Attending Provider Instructions: ACTIVITY RECOMMENDATIONS: SELF CARE INSTRUCTIONS AFTER THORACIC/LUMBAR FUSIONS 1. You may walk to your tolerance. It is good exercise for your legs and back. Expect some back and intermittent leg aches and pains. 2. You may perform "counter-top" level activities (make a sandwich, rachel with a project, etc.). 3. No bending or lifting of more than 10 pounds or back twisting of any nature (roll like a log when turning in bed). 4. You may ride in a car for 20-30 minutes at a time. No driving until after your first visit with your doctor. 5. Frequent changes of position and restricting sitting to 30 minutes at a time will help limit the amount of back spasms and stiffness you may experience. 6. You may discontinue the use of ambulatory aids (cane, crutches, etc.) once your strength and confidence allow. 7. You may insulation extruder operator the shower and let water strike your incision when you arrive home at least once daily. Do not take a tub bath, sit in a hot tub or go into a swimming pool until after your first recheck in the office. SPECIAL CARE INSTRUCTIONS: VERY IMPORTANT TO READ AND REVIEW A. Your surgical incision has been closed with a cosmetic suture under the skin that will dissolve in about 6 weeks. In 14 days, you can use a pair of clean scissors and cut the suture that is left outside of the skin at the ends of your incision. 1. The small skin tapes can be removed 7 days after surgery if they have not fallen off by that point. 2. You may keep the wound open to air as much as possible to promote healing after post-op day number 5 unless told otherwise by your doctor. 3. If you think the wound looks like it is becoming infected (redness or worsening drainage) and/or you are experiencing fever, chill or worsening back pain and muscle spasms, contact the office so that we may evaluate you as soon as possible. B. Complications are uncommon, but please contact us if you have any signs or symptoms of: 1. wound infection (fever higher than 102.5 degrees F, redness, separation of wound, drainage, or increasing pain from the incision) 2. blood clots in legs (pain, swelling, redness and warmth in legs) 3. urinary tract infection (fever higher than 102.5 degrees F, burning upon urination or increased frequency of urination) 4. nerve problems (inability to walk on your toes or heels, numbness, loss of bowel or bladder control) 5. any other symptoms that concern you C. Please call the office at if you have any concerns or questions about your operation or recovery. D. No smoking! Smoking drastically decreases the chance of a solid fusion. E. Do not take any anti-inflammatory medications (Indocin, Advil, Motrin, Aspirin, Naprosyn, etc.) as these may inhibit the chance of a solid fusion. Tylenol is okay to take for pain. MANAGING PAIN AFTER SPINAL SURGERY 1. Narcotic medication is intended for short-term use and will be provided for surgical pain. Surgical pain usually lasts for a period of 4-6 weeks. Narcotic medication includes Percocet, Vicodin, Darvocet, Tylenol #3 or Lortab. 2. Longer-term pain is more appropriately treated with non-narcotic medication such as Tylenol ES. 3. Muscle spasm is not appropriately treated with narcotics. Muscle relaxers such as Soma, Flexeril or Skelaxin can be used along with Tylenol ES. 4. Remember that we all live with some "aches and pains". This is not unusual or uncommon after an injury or as we get older. a. Back pain is expected and may include muscle spasms for 4 to 6 weeks after surgery. The pain should gradually improve. If the pain worsens for no apparent reason, please contact the office. b. Intermittent leg pain may also be experienced and should not be concerned about unless it worsens for no apparent reason. If so, please contact the office. 5. We will provide appropriate medication within the normal guidelines of their prescribed use. We will also be very cautious and aware of potential abuse and extended duration of patients' medication needs. a. Pain medications are for your comfort and to assist with sleep and rest so that the tissue can heal. They are not provided in order to return to normal activity and should not be used through the day. To do so or worsening pain at night can result from ongoing tissue damage and development of tolerance to the prescribed medicine. 6. Please allow 2-3 days to process refills. Prescriptions will not be mailed but must be picked up at the office. FOLLOW UP VISIT: Keep your scheduled follow-up appointment. Any questions, please call the office at . Pending Studies at Discharge: No Stand-Alone Forms: [facility], Smoking Cessation Medications and DC Order Prescriptions: New tramadol 50 mg tablet 50 mg PO Q6H PRN (Reason: pain, moderate) Qty: 30 0RF oxycodone 5 mg tablet 5 mg PO Q6H PRN (Reason: pain, severe) Qty: 30 0RF Continued atorvastatin 20 mg Tablet 20 mg PO HS aspirin 81 mg Tablet,Chewable 81 mg PO QAM loratadine [Claritin] 10 mg Tablet 10 mg PO QAM coenzyme Q10 [CoQ-10] 100 mg Capsule 100 mg PO QAM omeprazole magnesium [Prilosec OTC] 20 mg Tablet,Delayed Release (Dr/Ec) 20 mg PO QAM multivitamin Tablet 1 tab PO QAM Prevagen 1 tab PO QAM Discharge Orders: Discharge Order (Routine); Ordered 09/29/22 Ordered By: Vicente Díaz Admission Data Admit Date/Time: 09/27/22 13:23 Attending Provider: Vicente Díaz Admit Provider: Vicente Díaz Primary Care Provider: Ad Sanders Other Providers: Mimi Yañez ; Opal Solis ; Otoniel Lincoln
--- NOTE | 2022-09-29 11:34 | Hospitalist Progress Note ---
Date of Service September 29, 2022 Assessment & Plan (1) Neurogenic claudication due to lumbar spinal stenosis: Plan: POD#2 L5-S1 decompression and fusion by Dr. Díaz Activity and wound care orders as per ortho Pain control with bowel regimen PT/OT Current Hgb stable at 12.2 (12.6 yesterday) This is expected, post-op vs. dilutional No need for blood transfusion Monitor H/H for acute blood loss anemia and transfuse blood products PRN (2) Sleep apnea: Plan: Patient has not had a CPAP at home due to his home device being recalled CPAP ordered while inpatient according to previous outpatient settings (3) GERD (gastroesophageal reflux disease): Plan: Continue PPI (4) Hyperlipidemia: Plan: Continue statin (5) DVT prophylaxis: Plan: TEDs/SCDs as per spine Ortho Thank you for this consultation. We will follow the patient with you during their hospital stay. You can reach a member of [facility] via the [facility] role in [place] Text. Admission and Anticipated Discharge Date Admission Date: September 27, 2022 Supervising Physician Co-Signing Physician Notes I have seen and examined the patient and have discussed the case with the provider above. I agree with the assessment and plan as stated. 57 yo M s/p lumbar spine surgery. Doing well post operatively. Denies pain or numbess in legs. Pain is well managed with medications. No chest pain or SOB. My exam reflects that listed above. Cont post op management per ortho spine and cont medical management as outlined above. Subjective Seen in 387-1 in follow up consult following lumbar spine surgery. Feeling well today and ambulating in halls without issue. Denies F/C, headache, CP, SOB, N/V, abdominal pain, dysuria, diarhea or constipation. Ready to go home. Review of Systems Review of Systems: At least ten systems reviewed and negative except as noted in the HPI. Physical Exam Physical Exam: Gen: WD/WN, NAD, sitting in bedside chair, A&Ox3 HEENT: Normocephalic, atraumatic, conjunctivae moist, sclerae anicteric, mucous membranes moist Lung: Clear to Auscultation bilaterally, no wheezes/rales/rhonchi Heart: Regular rate, regular rhythm, no murmurs, rubs, or gallops Abdomen: Soft, NT, ND +BS x 4 Extremities: +S/p spinal surgery. JOSEFINA drain visualized. No edema Skin: Warm, no rash Results & Data Results & Data ([place]) Vital Signs (Past 12 Hours) Vital Signs Temp Pulse Pulse Resp BP Pulse Ox O2 Del Method 09/29/22 06:41 36.7 C 56 L 18 125/77 97 Room Air 09/29/22 03:42 90 13 95 09/29/22 00:27 95 H 15 96 Laboratory Results Short CBC 09/29/22 Range/Units 07:35 WBC 12.85 H (4.8-10.8) K/ul Hgb 12.2 L (14.0-18.0) g/dl Hct 35.2 L (40.1-51.0) % Plt Count 192 (130-400) K/uL BMP 09/29/22 07:35 Sodium 140 Potassium 4.0 Chloride 107 Carbon Dioxide 28 BUN 16 Creatinine 0.75 Glucose 92 Calcium 9.1 Diagnostic Findings Lumbar Spine X-Ray 09/27/22 11:25 INTRAOPERATIVE RADIOGRAPHS CLINICAL HISTORY: L5-S1 spinal fusion. Fluoroscopy time: 21 seconds. FINDINGS: 2 spot fluoroscopic views of the lumbar spine are presented. There has been discectomy at L5-S1 with laminectomy and posterior fusion at this level. Interpedicular screws are in place. There is minimal anterolisthesis at L5-S1. The orthopedic hardware appears intact. IMPRESSION: Intraoperative images from L5-S1 spinal fusion as above. Electronically signed by: Figueroa Ji M.D. 09/27/2022 1:59 PM
== END 2022-09-29 14:09 | disposition home or self-care (01) ==
LOC: ASU 09:49 → 3N 13:23 → INTOOBSV 13:23
DX: Z01.810 Encounter for preprocedural cardiovascular examination; Z79.82 Long term (current) use of aspirin; Z88.6 Allergy status to analgesic agent; F17.210 Nicotine dependence, cigarettes, uncomplicated; I45.19 Other right bundle-branch block; M43.16 Spondylolisthesis, lumbar region; K21.9 Gastro-esophageal reflux disease without esophagitis; Z20.822 Contact with and (suspected) exposure to COVID-19; Z86.16 Personal history of COVID-19; M54.16 Radiculopathy, lumbar region; Z79.899 Other long term (current) drug therapy; Z01.818 Encounter for other preprocedural examination; M48.062 Spinal stenosis, lumbar region with neurogenic claudication; Z01.812 Encounter for preprocedural laboratory examination; E78.5 Hyperlipidemia, unspecified

== ENCOUNTER 2025-06-06 17:47 | Observation (INO) ==
--- NOTE | 2025-06-06 18:00 | Emergency Department Note ---
Impression & Plan Sepsis, Acute UTI ED Provider Note CHIEF COMPLAINT: Fever HISTORY OF PRESENTING ILLNESS: This 59-year-old male patient presents to the emergency department with his for evaluation of a fever and possible UTI. The patient states that he started feeling like he had a fever this morning and then he developed a fever of 102.8 F around noon. He was seen at Urgent care and had COVID, Flu, RSV, and strep testing that was negative. Per patient, his urine was concerning for infection per urgent care. The patient states that they gave him an IM shot of antibiotics and advised him to come to the ER. His urine has been very dark and cloudy recently. Has been having some lower back pain as well, but has a history of chronic sciatic pain and is not sure if this pain is new or old. He has nausea, but no vomiting. Denies cough. Denies chest pain or SOB. Denies diarrhea or changes in his BMs. He took ibuprofen twice today. The patient has a history of tick bites and had Lyme Disease over 30 years ago. He was bit by a mosquito last week. Childhood immunizations are up to date. No known ill contacts. However, his has a UTI currently as well. REVIEW OF SYSTEMS: See HPI for pertinent positives and pertinent negatives. ALLERGIES: Naproxen causes GI upset, but OK to take ibuprofen MEDICATIONS: See below PAST MEDICAL HISTORY: See below PHYSICAL EXAM: Vital Signs: Vitals are noted on the nurse's note and reviewed by myself. GENERAL: The patient is diaphoretic, tachycardic, and appears acutely ill. SKIN: No obvious abnormal rashes. Capillary reflex less than 2 seconds. HEAD: Normocephalic, atraumatic. EARS: Bilateral external auditory canals clear without tragus tenderness. Bilateral tympanic membranes pearly reese without erythema or effusion. No mastoid tenderness bilaterally. EYES: Pupils equal round and reactive to light and accommodation. Conjunctivae without injection, sclerae without icterus. Extraocular movements intact. NOSE: Patent, turbinates inflamed with no discharge. No sinus tenderness. MOUTH: Mucous membranes moist. Airway patent, uvula midline. Pharynx is not erythematous and not edematous without exudate. Pharynx without postnasal drip. No evidence for peritonsillar abscess. NECK: Supple without nuchal rigidity. No meningeal signs. No lymphadenopathy. HEART: Tachycardic without murmurs gallops or rubs. LUNGS: Clear to auscultation bilaterally without wheezes, rales or rhonchi. No accessory muscle use or retractions. ABDOMEN: Positive bowel sounds x 4. Normal tympanic percussion. Soft, abdomen is nontender to palpation. The patient does have some right sided SI joint tenderness. However, no true CVA tenderness. No masses or hepatosplenomegaly. No guarding, rigidity, or rebound tenderness. No focal RLQ or LLQ tenderness. NEURO: Patient was alert and oriented. No focal neurologic deficits. DIFFERENTIAL DIAGNOSIS: Differential diagnosis includes Influenza, RSV, COVID, viral syndrome, otitis media, otitis externa, pharyngitis, strep throat, pneumonia, meningitis, urinary tract infection, cellulitis, abscess, sepsis, bacteremia, as well as other pathologies. ED COURSE AND MEDICAL DECISION MAKING: HISTORY FROM INDEPENDENT HISTORIAN: Additional history was obtained from patient's MEDICATIONS GIVEN: A total 2.5 L normal saline solution bolus. Tylenol 1000 mg IV. Cefepime 2 g IV. Vancomycin 1.75 g IV. Toradol 10 mg IV. MONITOR: Continuous gambling monitor: Order was placed for continuous gambling monitor. Patient was placed on the gambling monitor and continuous pulse ox. Patient was noted to be in sinus tachycardia at an initial rate of 110 bpm per my interpretation. EKG: EKG was interpreted by myself as sinus tachycardia at 170 bpm with no acute ST or T wave changes. There is an incomplete right bundle branch block. INTERPRETATION OF LABS: I interpreted the labs with full lab results as below in the lab section of this note. Laboratory results pertinent to the emergent complaint are discussed in the MDM section below. The patient was advised to follow up with their PCP and/or specialist(s) for further outpatient monitoring and management of any abnormal results. INTERPRETATION OF IMAGING: Imaging studies were interpreted by myself and read by radiology as per the imaging section of this note. The patient was advised to follow up with their PCP and/or specialist(s) for further outpatient management of any non-emergent abnormal findings. Chest x-ray per my interpretation showed no acute cardiopulmonary etiology. Radiology report is still pending. CT scan of the abdomen and pelvis with IV contrast showed no acute abnormalities. CONSULTATIONS: On-call hospitalist CRITICAL CARE: I have personally spent 35 minutes of critical care time in the direct management of this patient. This includes bedside care, interpretation of diagnostic studies, and testing, discussion with consultants, patient, and family members, and other required patient management activities. This 35 minutes is in excess of all separately billable procedures. MDM SUMMARY: I examined the patient. The patient started with a fever earlier today and then had a concerning urinalysis at urgent care as above. The patient has also been having some lower back pain which may also be chronic in nature. The patient arrived tachycardic, diaphoretic, febrile, and ill-appearing. There was concern for sepsis. An IV lock was placed and labs were drawn. The patient was given a total of 2.5 L normal saline solution bolus per body weight. Blood cultures were drawn. He was given IV cefepime and vancomycin. The patient was given Tylenol 1000 mg IV which did improve his fever. The patient was given Toradol 10 mg IV for some additional SI joint pain. White blood cell count normal at 10.69. Hemoglobin normal at 14. Platelet count normal at 131. Coags are normal. Sodium 135, glucose 148, and total bilirubin 1.3. CMP otherwise without concerning abnormalities. Magnesium normal. Lipase normal. High-sensitivity troponin normal. Lactate elevated 2.3 with repeat improved to 0.9. Procalcitonin elevated at 1.06. Urinalysis with trace protein, 1+ blood, positive nitrite, 3+ leukocyte esterase, greater than 50 white blood cells, 3-5 red blood cells, and 3-5 hyaline cast. Anaplasma and Babesia smear negative with DNA PCR still pending. Lyme screen negative. Respiratory BioFire was negative. Urine culture pending. Blood cultures pending. Chest x-ray per my interpretation showed no acute cardiopulmonary etiology. Radiology report is still pending. CT scan of the abdomen and pelvis with IV contrast showed no acute abnormalities. The patient appeared improved on appearance after his fever broke and his vital signs improved, but there is concern for sepsis from a UTI. CT scan does not show evidence for pyelonephritis or infected kidney stone. The patient will require admission for further evaluation and treatment. I spoke with the on- call hospitalist who agreed to admit the patient for further management. Please refer to their dictation for further details. The patient's care was transferred in stable condition. DIAGNOSIS: Sepsis UTI Attending Attestation: I Vinny Louise MD I have reviewed the advanced practitioner's documentation and agree with the plan of care. Broad-spectrum antibiotic coverage for presumed urosepsis. Lactate not elevated and no hypotension noted. I accept the responsibility for the associated risk of managing the patient. Admitted for further care. CT without findings of kidney stone/abscess per radiology report. I performed a substantive portion of the visit including involvement in all aspects of medical decision making. Past Med/Surg History Problem List (Updated 06/06/25 @ 22:13 by Paul Kim) Acute UTI (Acute) Sepsis (Acute) DVT prophylaxis Hyperlipidemia GERD (gastroesophageal reflux disease) Sleep apnea No current treatment; CPAP recalled Neurogenic claudication due to lumbar spinal stenosis Encounter for pre-operative examination Medical History GERD (gastroesophageal reflux disease) Well controlled and stable History of COVID-19 10/2020, home test and CDC test at the tranfer station; mild head cold for 2 days, fatigue>resolved. Hx of fracture of nose History of; multiple fracture incidents - no recent issues No breathing issues related to nasal septum Hx of seasonal allergies Hyperlipidemia Sleep apnea No current treatment; CPAP recalled Spondylolisthesis, multiple sites in spine Surgical History History of esophagogastroduodenoscopy (EGD) History of lumbar fusion Hx of arthroscopic knee surgery Hx of colonoscopy Family History (Updated 09/27/22 @ 17:54 by GODFREY Sams) Father Hypertension Mother Hypertension Social History Smoking Status: Light tobacco smoker Tobacco Type: Cigars Cigarettes Per Day: 3-4 per year; Second Hand Exposure: No; Do You Dip or Chew Tobacco: No; Hx Alcohol Use: Yes Alcohol type: beer and hard liquor Hx Substance Use: No Preferred Language: [place] Communication Ability: Effective Night Manager Required: No Beliefs That Will Affect Care: None marital status: Current Living Situation: Spouse Other Information That Helps Us Care for You: No Feels Safe at Home: Yes Safety Concerns: Feels Safe At This Time Assistive Devices: None Allergies Allergies Allergy/AdvReac Type Severity Reaction Status Date / Time naproxen AdvReac Unknown "tears my Verified 06/06/25 20:40 stomach up bad" Home Meds Home Medications Medication Instructions Recorded Confirmed aspirin 81 mg chewable tablet 81 mg PO QAM 09/11/22 06/06/25 atorvastatin 20 mg tablet 20 mg PO HS 09/11/22 06/06/25 coenzyme Q10 100 mg capsule 100 mg PO QAM 09/11/22 06/06/25 (CoQ-10) loratadine 10 mg tablet (Claritin) 10 mg PO HS 09/11/22 06/06/25 multivitamin 1 tab PO QAM 09/11/22 06/06/25 omeprazole magnesium 20 mg 20 mg PO QAM 09/11/22 06/06/25 tablet,delayed release (Prilosec OTC) Neutrifol 4 tabs PO QDB 06/06/25 06/06/25 Results & Data (ED) Vital Signs Vital Signs - 24 hr 06/06/25 17:48 06/06/25 17:48 06/06/25 18:08 Temperature 39.2 C H 39.2 C H Temperature Source Oral Oral Pulse Rate 112 H 114 H Pulse Rate [Right Brachial] 112 H Pulse Rhythm Regular Pulse Rhythm [Right Brachial] Regular Pulse Strength Normal Pulse Strength [Right Brachial] Normal Respiratory Rate 22 22 Respiratory Effort / Characteristics Non-Labored Non-Labored Respiratory Depth Normal Normal Respiratory Pattern Regular Regular Blood Pressure 140/72 Blood Pressure [Right Arm] 140/72 Blood Pressure Mean 94 Blood Pressure Mean [Right Arm] 94 Blood Pressure Position Lying Blood Pressure Position [Right Arm] Lying Pulse Oximetry 95 95 Oxygen Delivery Method Room Air Room Air Sepsis Recent Fever Within 48 Hours No Sepsis New/Unexplained Change in Mental Status N/A Sepsis Action Taken by Nursing Physician Notified 06/06/25 18:12 06/06/25 19:42 06/06/25 19:48 Temperature 37.4 C Temperature Source Oral Pulse Rate Pulse Rate [Right Brachial] 95 H Pulse Rhythm Pulse Rhythm [Right Brachial] Regular Pulse Strength Pulse Strength [Right Brachial] Normal Respiratory Rate 18 Respiratory Effort / Characteristics Non-Labored Respiratory Depth Normal Respiratory Pattern Regular Blood Pressure Blood Pressure [Right Arm] 117/68 Blood Pressure Mean Blood Pressure Mean [Right Arm] 84 Blood Pressure Position Blood Pressure Position [Right Arm] Lying Pulse Oximetry 95 95 Oxygen Delivery Method Room Air Room Air Sepsis Recent Fever Within 48 Hours Sepsis New/Unexplained Change in Mental Status Sepsis Action Taken by Nursing Laboratory Data 06/06/25 15:02 06/06/25 15:02 Lab Results 06/06/25 06/06/25 06/06/25 Range/Units 15:02 18:21 19:40 WBC 10.69 (4.8-10.8) K/ul RBC 4.50 L (4.70-6.10) M/uL Hgb 14.0 (14.0-18.0) g/dl Hct 39.0 L (42.0-52.0) % MCV 86.7 (80.0-100.0) fL MCH 31.1 (25.0-34.0) pg MCHC 35.9 (32.0-36.0) g/dL RDW Std Deviation 40.8 (36.4-46.3) fL RDW Coeff of Wero 13.1 (11.5-14.5) % Plt Count 131 (130-400) K/uL MPV 9.3 L (9.4-12.4) fL Immature Gran % (Auto) 0.7 % Neut % (Auto) 93.3 % Lymph % (Auto) 3.8 % [place] % (Auto) 1.8 % Eos % (Auto) 0.2 % Baso % (Auto) 0.2 % Neut # (Auto) 9.98 H (1.40-6.50) K/uL Lymph # (Auto) 0.41 L (1.20-3.40) K/uL [place] # (Auto) 0.19 (0.11-0.59) K/uL Eos # (Auto) 0.02 (0.00-0.50) K/uL Baso # (Auto) 0.02 (0.00-0.20) K/uL Immature Gran # (Auto) 0.07 (0.01-0.20) K/uL PT 11.4 (9.0-12.0) Seconds INR 1.1 (0.9-1.1) APTT 29 (21-31) Seconds PTT Ratio 1.1 Sodium 135 L (136-145) mmol/L Potassium 3.7 (3.5-5.1) mmol/L Chloride 104 (98-107) mmol/L Carbon Dioxide 22 (21-32) mmol/L Anion Gap 9 (3-11) BUN 15 (6-23) mg/dl Creatinine 1.02 (0.6-1.4) mg/dl Est Cr Clr Drug Dosing 81.4 ml/min eGFR 84.14 BUN/Creatinine Ratio 14.7 (10-20) Glucose 148 H (70-99(Fasting)) mg/dl Lactate 2.3 H* (0.4-2.0) mmol/L Calcium 9.0 (8.6-10.3) mg/dl Magnesium 1.7 (1.7-2.4) mg/dl Total Bilirubin 1.3 H (0.2-1.0) mg/dl AST 20 (13-39) U/L ALT 22 (7-52) U/L Alkaline Phosphatase 90 (34-104) U/L Troponin I High Sens 4.7 (0-20) pg/ml Total Protein 6.6 (6.0-8.3) gm/dl Albumin 4.1 (3.4-5.0) gm/dl Globulin 2.5 (2.5-4.0) gm/dl Albumin/Globulin Ratio 1.6 (0.9-2) Lipase 14 (11-82) U/L Procalcitonin 1.06 H (0-0.5) ng/ml Urine Color Yellow Urine Appearance Cloudy A (Clear) Urine pH 6.5 (4.5-7.5) Ur Specific [place] 1.016 (1.000-1.030) Urine Protein Trace H (Negative) Urine Glucose (UA) Negative (Negative) Urine Ketones Negative (Negative) Urine Blood 1+ H (Negative) Urine Nitrite Positive A (Negative) Urine Bilirubin Negative (Negative) Urine Urobilinogen Negative (Negative) Ur Leukocyte Esterase 3+ H (Negative) Urine WBC (Auto) >50 H (0-5) /hpf Urine RBC (Auto) 3-5 H (0-2) /hpf U Hyaline Cast (Auto) 3-5 H (0-2) /lpf U Epithel Cells (Auto) 0-2 (0-2) /hpf Urine Bacteria (Auto) None Seen (None Seen) Urine Comment Adenovirus (PCR) Not Detected (NotDetected) Anaplasma Smear See Comment Babesia Smear See Comment B. pertussis DNA (PCR) Not Detected (NotDetected) B.parapertussis DNA PCR Not Detected (NotDetected) Lyme Disease Screen Negative (Negative) C. pneumoniae DNA (PCR) Not Detected (NotDetected) Coronavirus OC43 (PCR) Not Detected (NotDetected) Coronavirus HKU1 (PCR) Not Detected (NotDetected) Coronavirus 229E (PCR) Not Detected (NotDetected) SARS-CoV-2 (PCR) Not Detected (NotDetected) Coronavirus NL63 (PCR) Not Detected (NotDetected) Human Metapneumovir PCR Not Detected (NotDetected) Influenza Type A (PCR) Not Detected (NotDetected) Influenza Type B (PCR) Not Detected (NotDetected) M. pneumoniae (PCR) Not Detected (NotDetected) Parainfluenza 1 (PCR) Not Detected (NotDetected) Parainfluenza 2 (PCR) Not Detected (NotDetected) Parainfluenza 3 (PCR) Not Detected (NotDetected) Parainfluenza 4 (PCR) Not Detected (NotDetected) RSV (PCR) Not Detected (NotDetected) Entero/Rhino (PCR) Not Detected (NotDetected) 06/06/25 Range/Units 20:13 WBC (4.8-10.8) K/ul RBC (4.70-6.10) M/uL Hgb (14.0-18.0) g/dl Hct (42.0-52.0) % MCV (80.0-100.0) fL MCH (25.0-34.0) pg MCHC (32.0-36.0) g/dL RDW Std Deviation (36.4-46.3) fL RDW Coeff of Wero (11.5-14.5) % Plt Count (130-400) K/uL MPV (9.4-12.4) fL Immature Gran % (Auto) % Neut % (Auto) % Lymph % (Auto) % [place] % (Auto) % Eos % (Auto) % Baso % (Auto) % Neut # (Auto) (1.40-6.50) K/uL Lymph # (Auto) (1.20-3.40) K/uL [place] # (Auto) (0.11-0.59) K/uL Eos # (Auto) (0.00-0.50) K/uL Baso # (Auto) (0.00-0.20) K/uL Immature Gran # (Auto) (0.01-0.20) K/uL PT (9.0-12.0) Seconds INR (0.9-1.1) APTT (21-31) Seconds PTT Ratio Sodium (136-145) mmol/L Potassium (3.5-5.1) mmol/L Chloride (98-107) mmol/L Carbon Dioxide (21-32) mmol/L Anion Gap (3-11) BUN (6-23) mg/dl Creatinine (0.6-1.4) mg/dl Est Cr Clr Drug Dosing ml/min eGFR BUN/Creatinine Ratio (10-20) Glucose (70-99(Fasting)) mg/dl Lactate 0.9 (0.4-2.0) mmol/L Calcium (8.6-10.3) mg/dl Magnesium (1.7-2.4) mg/dl Total Bilirubin (0.2-1.0) mg/dl AST (13-39) U/L ALT (7-52) U/L Alkaline Phosphatase (34-104) U/L Troponin I High Sens (0-20) pg/ml Total Protein (6.0-8.3) gm/dl Albumin (3.4-5.0) gm/dl Globulin (2.5-4.0) gm/dl Albumin/Globulin Ratio (0.9-2) Lipase (11-82) U/L Procalcitonin (0-0.5) ng/ml Urine Color Urine Appearance (Clear) Urine pH (4.5-7.5) Ur Specific [place] (1.000-1.030) Urine Protein (Negative) Urine Glucose (UA) (Negative) Urine Ketones (Negative) Urine Blood (Negative) Urine Nitrite (Negative) Urine Bilirubin (Negative) Urine Urobilinogen (Negative) Ur Leukocyte Esterase (Negative) Urine WBC (Auto) (0-5) /hpf Urine RBC (Auto) (0-2) /hpf U Hyaline Cast (Auto) (0-2) /lpf U Epithel Cells (Auto) (0-2) /hpf Urine Bacteria (Auto) (None Seen) Urine Comment Adenovirus (PCR) (NotDetected) Anaplasma Smear Babesia Smear B. pertussis DNA (PCR) (NotDetected) B.parapertussis DNA PCR (NotDetected) Lyme Disease Screen (Negative) C. pneumoniae DNA (PCR) (NotDetected) Coronavirus OC43 (PCR) (NotDetected) Coronavirus HKU1 (PCR) (NotDetected) Coronavirus 229E (PCR) (NotDetected) SARS-CoV-2 (PCR) (NotDetected) Coronavirus NL63 (PCR) (NotDetected) Human Metapneumovir PCR (NotDetected) Influenza Type A (PCR) (NotDetected) Influenza Type B (PCR) (NotDetected) M. pneumoniae (PCR) (NotDetected) Parainfluenza 1 (PCR) (NotDetected) Parainfluenza 2 (PCR) (NotDetected) Parainfluenza 3 (PCR) (NotDetected) Parainfluenza 4 (PCR) (NotDetected) RSV (PCR) (NotDetected) Entero/Rhino (PCR) (NotDetected) Administered Medications Atorvastatin Calcium (Atorvastatin 20 Mg Tab) 20 mg PO HS [id number] Stop: 07/06/25 21:19 Last Admin: 06/06/25 21:49 Dose: 20 mg Documented By: SOFIA Discontinued Medications Sodium Chloride (Nss) 1,000 mls @ 999 mls/hr IV .Q1H1M ONE Stop: 06/06/25 19:17 Last Infusion: 06/06/25 19:43 Dose: Infused Documented By: Admin: 06/06/25 18:33 Dose: 999 mls/hr Documented By: CRISTI Acetaminophen (Ofirmev) 1,000 mg in 100 mls @ 400 mls/hr IV NOW STA Stop: 06/06/25 18:31 Last Infusion: 06/06/25 18:52 Dose: Infused Documented By: Admin: 06/06/25 18:33 Dose: 400 mls/hr Documented By: CRISTI Cefepime HCl (Maxipime 2000mg) 2,000 mg in 20 mls @ 5 mls/min IV NOW STA; Protocol Stop: 06/06/25 18:23 Last Admin: 06/06/25 18:33 Dose: 5 mls/min Documented By: CRISTI Sodium Chloride (Nss) 1,000 mls @ 999 mls/hr IV .Q1H1M ONE Stop: 06/06/25 19:51 Last Infusion: 06/06/25 22:21 Dose: Infused Documented By: Admin: 06/06/25 19:43 Dose: 999 mls/hr Documented By: CRISTI Sodium Chloride (Nss) 500 mls @ 999 mls/hr IV .Q31M ONE Stop: 06/06/25 19:21 Last Infusion: 06/06/25 20:23 Dose: Infused Documented By: Admin: 06/06/25 19:43 Dose: 999 mls/hr Documented By: CRISTI Vancomycin HCl 1,750 mg/ (Sodium Chloride) 535 mls @ 200 mls/hr IV NOW ONE Stop: 06/06/25 21:31 Last Infusion: 06/06/25 22:22 Dose: Infused Documented By: Admin: 06/06/25 19:43 Dose: 200 mls/hr Documented By: CRISTI Ioversol (Optiray 320 100ml) 90 ml IV ONCE ONE Stop: 06/06/25 19:29 Last Admin: 06/06/25 19:29 Dose: 90 ml Documented By: TAN Ketorolac Tromethamine (Ketorolac Tromethamine 15 Mg/Ml Vial) 10 mg IV NOW ONE Stop: 06/06/25 20:49 Last Admin: 06/06/25 21:32 Dose: 10 mg Documented By: SOFIA Imaging Data Radiologist's Impression: Abdomen/Pelvis CT 06/06/25 18:17 EXAMINATION: CT of the abdomen and pelvis performed after the administration of IV contrast TECHNIQUE: Helical CT images from the lung bases through the symphysis pubis were obtained with contrast. Coronal and sagittal reformatted images were generated at a workstation for further assessment. Dose reduction techniques were achieved by using automatic exposure control and/or adjustment of mA and/or kV according to patient size and/or use of iterative reconstruction technique. COMPARISON: None HISTORY: Abdominal pain FINDINGS: Lower chest: No consolidation. No pleural effusion or pneumothorax. Liver: No suspicious liver lesions. Portal veins appear patent. There are a few tiny hepatic cysts. Gallbladder: No gallstones. No evidence of acute cholecystitis. Spleen: Normal size. Pancreas: No suspicious pancreatic lesions. The pancreatic duct is not dilated. Adrenal glands: No adrenal nodules. Kidneys: No hydronephrosis or obstructing renal stones. Bladder / Pelvic organs: Unremarkable. Bowel: No bowel obstruction. No abnormal bowel wall thickening. The appendix is unremarkable. Lymph nodes: No retroperitoneal, mesenteric, or pelvic lymphadenopathy. Peritoneum / Retroperitoneum: No free fluid or air within the abdomen. Vessels: No infrarenal aortic aneurysm. Bones and soft tissues: No suspicious lesion in the bones. Posterior paz and screw fixation changes and disc spacer device at L4-5. IMPRESSION: No acute finding in the abdomen or pelvis Electronically signed by Yeyo Aldridge 06-06-2025 7:53 PM Discharge Plan Visit Data Chief Complaint: Fever Stated Complaint: FEVER, UTI ED Provider: Vinny Louise ED Midlevel Provider: Mariah Estrada Discharge Problem: Sepsis, Acute UTI Patient Disposition: Admitted As Inpatient Condition: Fair Discharge Instructions Interventions: ED Discharge Assessment Last Done: 06/06/25 21:58
[2025-06-06] MEDS: CEFEPIME 2000MG 2,000 MG/20 ML SYR IV STA (18:33)
[2025-06-06] MEDS: ACETAMINOPHEN 1,000 MG/100 ML VIAL IV STA (18:33)
[2025-06-06] MEDS: SODIUM CHLORIDE 0.9% 1,000 ML IV ONE ×2 (18:33→19:43)
[2025-06-06 18:45] LABS: Hematocrit (blood only) 39.0 % (42.0-52.0); Hemoglobin 14.0 g/dl (14.0-18.0); Mean Corpuscular Hemoglobin 31.1 pg (25.0-34.0); Mean Corpuscular Volume 86.7 fL (80.0-100.0); Platelet Count 131 K/uL (130-400); RDW Standard Deviation 40.8 fL (36.4-46.3); Red Blood Count 4.50 M/uL (4.70-6.10); White Blood Count 10.69 K/ul (4.8-10.8)
[2025-06-06] MEDS ORDERED: VANCOMYCIN CONSULT ACTIVE PRN (18:51)
[2025-06-06 18:53] LABS: Alanine Aminotransferase 22.0 U/L (7-52); Albumin Globulin Ratio 1.6 (0.9-2); Alkaline Phosphatase 90.0 U/L (34-104); Anion Gap 9.0 (3-11); Bilirubin,Total 1.3 mg/dl (0.2-1.0); Blood Urea Nitrogen 15.0 mg/dl (6-23); Calcium 9.0 mg/dl (8.6-10.3); Carbon Dioxide 22.0 mmol/L (21-32); Chloride 104.0 mmol/L (98-107); Creatinine Clr Calc Pharmacy 81.4 ml/min; Globulin 2.5 gm/dl (2.5-4.0); Glucose 148.0 mg/dl (70-99(Fasting)); Lipase 14.0 U/L (11-82); Magnesium 1.7 mg/dl (1.7-2.4); Potassium 3.7 mmol/L (3.5-5.1); Sodium 135.0 mmol/L (136-145); Total Protein 6.6 gm/dl (6.0-8.3)
[2025-06-06 19:08] LABS: Immature Granulocytes # (auto) 0.07 K/uL (0.01-0.20); Immature Granulocytes % (auto) 0.7 %
[2025-06-06 19:22] LABS: INR 1.1 (0.9-1.1); Partial Thromboplastin Time 29 Seconds (21-31); Prothrombin Time 11.4 Seconds (9.0-12.0)
[2025-06-06] MEDS: OPTIRAY 320 100ml IV ONE (19:29)
[2025-06-06] MEDS: VANCOMYCIN HCL 1,750 MG in SODIUM CHLORIDE 0.9% 500 ML IV ONE (19:43)
[2025-06-06] MEDS: SODIUM CHLORIDE 0.9% 500 ML IV ONE (19:43)
--- NOTE | 2025-06-06 19:53 | CT Scan Report ---
EXAMINATION: CT of the abdomen and pelvis performed after the administration of IV contrast TECHNIQUE: Helical CT images from the lung bases through the symphysis pubis were obtained with contrast. Coronal and sagittal reformatted images were generated at a workstation for further assessment. Dose reduction techniques were achieved by using automatic exposure control and/or adjustment of mA and/or kV according to patient size and/or use of iterative reconstruction technique. COMPARISON: None HISTORY: Abdominal pain FINDINGS: Lower chest: No consolidation. No pleural effusion or pneumothorax. Liver: No suspicious liver lesions. Portal veins appear patent. There are a few tiny hepatic cysts. Gallbladder: No gallstones. No evidence of acute cholecystitis. Spleen: Normal size. Pancreas: No suspicious pancreatic lesions. The pancreatic duct is not dilated. Adrenal glands: No adrenal nodules. Kidneys: No hydronephrosis or obstructing renal stones. Bladder / Pelvic organs: Unremarkable. Bowel: No bowel obstruction. No abnormal bowel wall thickening. The appendix is unremarkable. Lymph nodes: No retroperitoneal, mesenteric, or pelvic lymphadenopathy. Peritoneum / Retroperitoneum: No free fluid or air within the abdomen. Vessels: No infrarenal aortic aneurysm. Bones and soft tissues: No suspicious lesion in the bones. Posterior paz and screw fixation changes and disc spacer device at L4-5. IMPRESSION: No acute finding in the abdomen or pelvis Electronically signed by Yeyo Aldridge 06-06-2025 7:53 PM
[2025-06-06 20:17] LABS: Appearance Urine Cloudy (Clear); Bacteria Urine Automated None Seen (None Seen); Epithelial Cell Urine Auto 0-2 /hpf (0-2); Glucose Urine UA Negative (Negative); WBC Urine Automated >50 /hpf (0-5)
--- NOTE | 2025-06-06 20:41 | History & Physical Report ---
Date of Service June 06, 2025 Assessment & Plan (1) Sepsis: Plan: Assessment and plan below following discussion of case with ED provider and reviewing patient history/pertinent normal/abnormal diagnostic test results. Severe sepsis SIRS plus lactic acidosis, repeat lactic acid within normal limits Secondary to complicated UTI hyperlipidemia, on statin Rx YOMI status post Inspire therapy mood disorder, stable Hyperglycemia rule out DM ongoing tobacco abuse Admit to med/tele CS, cefepime Check hemoglobin A1c Nicotine patch as needed DVT prophylaxis with Lovenox subcu Full code Text document was generated using [employer] voice recognition software. It may contain grammatical or spelling errors. Kindly contact undersigned for clarification of any documentation item in question. History of Present Illness Chief Complaint: Fever, chills Primary Care Provider: Ad Sanders MD History obtained from patient and records. Medical history significant for situational hypertension, hyperlipidemia, YOMI status post Inspire therapy, GERD, recurrent UTIs, mood disorder, ongoing tobacco abuse. Last confinement September 2022 under [facility] Sp[facility] service for LSS status post decompression surgery. Patient woke up not feeling well this morning. Fever, chills without chest pain, SOB, abdominal pain, hematuria, dysuria, diarrhea symptoms. Has had asymptomatic UTIs in the past. Patient consulted local urgent care center. UA suggestive of UTI. Patient given ceftriaxone and discharged on cefdinir Rx. Patient consulted ER for worsening symptoms. IV vancomycin and cefepime administered at the ER. 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 Allergies Allergy/AdvReac Type Severity Reaction Status Date / Time naproxen AdvReac Unknown "tears my Verified 06/06/25 20:40 stomach up bad" Home Medications Medication Instructions Recorded Confirmed Type aspirin 81 mg chewable tablet 81 mg PO QAM 09/11/22 06/06/25 History atorvastatin 20 mg tablet 20 mg PO HS 09/11/22 06/06/25 History coenzyme Q10 100 mg capsule 100 mg PO QAM 09/11/22 06/06/25 History (CoQ-10) loratadine 10 mg tablet (Claritin) 10 mg PO HS 09/11/22 06/06/25 History multivitamin 1 tab PO QAM 09/11/22 06/06/25 History omeprazole magnesium 20 mg 20 mg PO QAM 09/11/22 06/06/25 History tablet,delayed release (Prilosec OTC) Neutrifol 4 tabs PO QDB 06/06/25 06/06/25 History Past Med/Surg History Problem List (Updated 06/06/25 @ 22:13 by Paul Kim) Acute UTI (Acute) Sepsis (Acute) DVT prophylaxis Hyperlipidemia GERD (gastroesophageal reflux disease) Sleep apnea No current treatment; CPAP recalled Neurogenic claudication due to lumbar spinal stenosis Encounter for pre-operative examination Medical History GERD (gastroesophageal reflux disease) Well controlled and stable History of COVID-19 10/2020, home test and CDC test at the tranfer station; mild head cold for 2 days, fatigue>resolved. Hx of fracture of nose History of; multiple fracture incidents - no recent issues No breathing issues related to nasal septum Hx of seasonal allergies Hyperlipidemia Sleep apnea No current treatment; CPAP recalled Spondylolisthesis, multiple sites in spine Surgical History History of esophagogastroduodenoscopy (EGD) History of lumbar fusion Hx of arthroscopic knee surgery Hx of colonoscopy Family History (Updated 09/27/22 @ 17:54 by GODFREY Sams) Father Hypertension Mother Hypertension Social History Smoking Status: Light tobacco smoker Tobacco Type: Cigars Cigarettes Per Day: 3-4 per year; Second Hand Exposure: No; Do You Dip or Chew Tobacco: No; Hx Alcohol Use: Yes Alcohol type: beer and hard liquor Hx Substance Use: No Preferred Language: Italian Communication Ability: Effective Communications Equipment Operator Required: No Beliefs That Will Affect Care: None marital status: Current Living Situation: Spouse Other Information That Helps Us Care for You: No Feels Safe at Home: Yes Safety Concerns: Feels Safe At This Time Assistive Devices: None Review of Systems Review of Systems: As per HPI, all other systems reviewed and negative Physical Exam Physical Exam: GENERAL: Comfortable, pleasant, obese, no respiratory distress SKIN: Normal color, warm HEENT: [place] palpebral conjunctivae, no ptosis, dry buccal mucosa NECK : Supple, no tenderness CHEST : CTA, no tenderness HEART : RRR, no obvious murmurs ABDOMEN: Some distention, nontender EXTREMITIES : No LE swelling/tenderness, palpable pulses, no other conspicuous deformities noted NEUROLOGIC : Coherent, no facial asymmetry, no other gross focality Results & Data Results & Data Vital Signs (Past 12 Hours) Vital Signs Temp Pulse Pulse Resp BP BP Pulse Ox 06/06/25 19:48 95 H 18 117/68 95 06/06/25 19:42 37.4 C 06/06/25 18:12 95 06/06/25 18:08 114 H 06/06/25 17:48 39.2 C H 112 H 22 140/72 95 06/06/25 17:48 39.2 C H 112 H 22 140/72 95 O2 Del Method 06/06/25 19:48 Room Air 06/06/25 19:42 06/06/25 18:12 Room Air 06/06/25 18:08 06/06/25 17:48 Room Air 06/06/25 17:48 Room Air Laboratory Results Laboratory Results WBC 10.69 K/ul (4.8-10.8) 06/06/25 15:02 RBC 4.50 M/uL (4.70-6.10) L 06/06/25 15:02 Hgb 14.0 g/dl (14.0-18.0) 06/06/25 15:02 Hct 39.0 % (42.0-52.0) L 06/06/25 15:02 MCV 86.7 fL (80.0-100.0) 06/06/25 15:02 MCH 31.1 pg (25.0-34.0) 06/06/25 15:02 MCHC 35.9 g/dL (32.0-36.0) 06/06/25 15:02 RDW Std Deviation 40.8 fL (36.4-46.3) 06/06/25 15:02 RDW Coeff of Wero 13.1 % (11.5-14.5) 06/06/25 15:02 Plt Count 131 K/uL (130-400) 06/06/25 15:02 MPV 9.3 fL (9.4-12.4) L 06/06/25 15:02 Immature Gran % (Auto) 0.7 % 06/06/25 15:02 Neut % (Auto) 93.3 % 06/06/25 15:02 Lymph % (Auto) 3.8 % 06/06/25 15:02 [place] % (Auto) 1.8 % 06/06/25 15:02 Eos % (Auto) 0.2 % 06/06/25 15:02 Baso % (Auto) 0.2 % 06/06/25 15:02 Neut # (Auto) 9.98 K/uL (1.40-6.50) H 06/06/25 15:02 Lymph # (Auto) 0.41 K/uL (1.20-3.40) L 06/06/25 15:02 [place] # (Auto) 0.19 K/uL (0.11-0.59) 06/06/25 15:02 Eos # (Auto) 0.02 K/uL (0.00-0.50) 06/06/25 15:02 Baso # (Auto) 0.02 K/uL (0.00-0.20) 06/06/25 15:02 Immature Gran # (Auto) 0.07 K/uL (0.01-0.20) 06/06/25 15:02 PT 11.4 Seconds (9.0-12.0) 06/06/25 15:02 INR 1.1 (0.9-1.1) 06/06/25 15:02 APTT 29 Seconds (21-31) 06/06/25 15:02 PTT Ratio 1.1 06/06/25 15:02 Sodium 135 mmol/L (136-145) L 06/06/25 15:02 Potassium 3.7 mmol/L (3.5-5.1) 06/06/25 15:02 Chloride 104 mmol/L (98-107) 06/06/25 15:02 Carbon Dioxide 22 mmol/L (21-32) 06/06/25 15:02 Anion Gap 9 (3-11) 06/06/25 15:02 BUN 15 mg/dl (6-23) 06/06/25 15:02 Creatinine 1.02 mg/dl (0.6-1.4) 06/06/25 15:02 Est Cr Clr Drug Dosing 81.4 ml/min 06/06/25 15:02 eGFR 84.14 06/06/25 15:02 BUN/Creatinine Ratio 14.7 (10-20) 06/06/25 15:02 Glucose 148 mg/dl (70-99(Fasting)) H 06/06/25 15:02 Lactate 0.9 mmol/L (0.4-2.0) 06/06/25 20:13 Calcium 9.0 mg/dl (8.6-10.3) 06/06/25 15:02 Magnesium 1.7 mg/dl (1.7-2.4) 06/06/25 15:02 Total Bilirubin 1.3 mg/dl (0.2-1.0) H 06/06/25 15:02 AST 20 U/L (13-39) 06/06/25 15:02 ALT 22 U/L (7-52) 06/06/25 15:02 Alkaline Phosphatase 90 U/L (34-104) 06/06/25 15:02 Troponin I High Sens 4.7 pg/ml (0-20) 06/06/25 15:02 Total Protein 6.6 gm/dl (6.0-8.3) 06/06/25 15:02 Albumin 4.1 gm/dl (3.4-5.0) 06/06/25 15:02 Globulin 2.5 gm/dl (2.5-4.0) 06/06/25 15:02 Albumin/Globulin Ratio 1.6 (0.9-2) 06/06/25 15:02 Lipase 14 U/L (11-82) 06/06/25 15:02 Procalcitonin 1.06 ng/ml (0-0.5) H 06/06/25 15:02 Urine Color Yellow 06/06/25 19:40 Urine Appearance Cloudy (Clear) A 06/06/25 19:40 Urine pH 6.5 (4.5-7.5) 06/06/25 19:40 Ur Specific [place] 1.016 (1.000-1.030) 06/06/25 19:40 Urine Protein Trace (Negative) H 06/06/25 19:40 Urine Glucose (UA) Negative (Negative) 06/06/25 19:40 Urine Ketones Negative (Negative) 06/06/25 19:40 Urine Blood 1+ (Negative) H 06/06/25 19:40 Urine Nitrite Positive (Negative) A 06/06/25 19:40 Urine Bilirubin Negative (Negative) 06/06/25 19:40 Urine Urobilinogen Negative (Negative) 06/06/25 19:40 Ur Leukocyte Esterase 3+ (Negative) H 06/06/25 19:40 Urine WBC (Auto) >50 /hpf (0-5) H 06/06/25 19:40 Urine RBC (Auto) 3-5 /hpf (0-2) H 06/06/25 19:40 U Hyaline Cast (Auto) 3-5 /lpf (0-2) H 06/06/25 19:40 U Epithel Cells (Auto) 0-2 /hpf (0-2) 06/06/25 19:40 Urine Bacteria (Auto) None Seen (None Seen) 06/06/25 19:40 Urine Comment 06/06/25 19:40 Anaplasma Smear See Comment 06/06/25 15:02 Babesia Smear See Comment 06/06/25 15:02 Impressions Abdomen/Pelvis CT 06/06/25 18:17 EXAMINATION: CT of the abdomen and pelvis performed after the administration of IV contrast TECHNIQUE: Helical CT images from the lung bases through the symphysis pubis were obtained with contrast. Coronal and sagittal reformatted images were generated at a workstation for further assessment. Dose reduction techniques were achieved by using automatic exposure control and/or adjustment of mA and/or kV according to patient size and/or use of iterative reconstruction technique. COMPARISON: None HISTORY: Abdominal pain FINDINGS: Lower chest: No consolidation. No pleural effusion or pneumothorax. Liver: No suspicious liver lesions. Portal veins appear patent. There are a few tiny hepatic cysts. Gallbladder: No gallstones. No evidence of acute cholecystitis. Spleen: Normal size. Pancreas: No suspicious pancreatic lesions. The pancreatic duct is not dilated. Adrenal glands: No adrenal nodules. Kidneys: No hydronephrosis or obstructing renal stones. Bladder / Pelvic organs: Unremarkable. Bowel: No bowel obstruction. No abnormal bowel wall thickening. The appendix is unremarkable. Lymph nodes: No retroperitoneal, mesenteric, or pelvic lymphadenopathy. Peritoneum / Retroperitoneum: No free fluid or air within the abdomen. Vessels: No infrarenal aortic aneurysm. Bones and soft tissues: No suspicious lesion in the bones. Posterior paz and screw fixation changes and disc spacer device at L4-5. IMPRESSION: No acute finding in the abdomen or pelvis Electronically signed by Yeyo Aldridge 06-06-2025 7:53 PM Diagnostic Findings EKG as per my interpretation :Rate 105, sinus tachycardia, normal axis, incomplete RBBB, no ischemia
[2025-06-06 20:47] LABS: Chlamydia pneumoniae PCR Not Detected (NotDetected); Coronavirus 229E PCR Not Detected (NotDetected); Coronavirus CoV-2 (COVID19)PCR Not Detected (NotDetected); Coronavirus HKU1 PCR Not Detected (NotDetected); Coronavirus NL63 PCR Not Detected (NotDetected); Coronavirus OC43PCR Not Detected (NotDetected); Human Metapneumovirus PCR Not Detected (NotDetected); Parainfluenza Virus 1 PCR Not Detected (NotDetected); Parainfluenza Virus 2 PCR Not Detected (NotDetected); Parainfluenza Virus 3 PCR Not Detected (NotDetected); Parainfluenza Virus 4 PCR Not Detected (NotDetected); Respiratory Syncytial VirusPCR Not Detected (NotDetected); Rhinovirus/Enterovirus PCR Not Detected (NotDetected)
[2025-06-06] MEDS ORDERED: PROMETHAZINE 6.25 MG/50.25 ML BAG IV PRN (21:22)
[2025-06-06] MEDS: KETOROLAC TROMETHAMINE 15 MG/ML VIAL IV ONE (21:32)
[2025-06-06] MEDS: ATORVASTATIN 20 MG TAB PO SCH (21:49)
--- NOTE | 2025-06-07 00:03 | XRay Report ---
Exam(s): XR CXR 1 VIEW EXAM: XR Chest, 1 View CLINICAL HISTORY: Reason for exam: fever, tachycardia. TECHNIQUE: Frontal view of the chest. COMPARISON: 09/14/2022 FINDINGS: Lungs: Unremarkable. No consolidation. Pleural space: Unremarkable. No pneumothorax. Heart: Unremarkable. No cardiomegaly. Mediastinum: Unremarkable. Normal mediastinal contour. Bones/joints: Unremarkable. No acute fracture. Tubes, lines and devices: There is an electronic stimulating device implanted over the right chest with the lead running to the right side of the neck. Upper abdomen: Unremarkable as visualized. No pneumoperitoneum under the diaphragm. IMPRESSION: No acute findings in the chest. Electronically signed by: Vinny Solis MD 06/07/25 00:03 AM
[2025-06-07] MEDS: CEFEPIME 2000MG 2,000 MG/20 ML SYR IV SCH (01:03)
[2025-06-07 06:21] LABS: Hematocrit (blood only) 36.0 % (42.0-52.0); Hemoglobin 12.6 g/dl (14.0-18.0); Immature Granulocytes # (auto) 0.09 K/uL (0.01-0.20); Immature Granulocytes % (auto) 0.6 %; Mean Corpuscular Hemoglobin 30.6 pg (25.0-34.0); Mean Corpuscular Volume 87.4 fL (80.0-100.0); Platelet Count 118 K/uL (130-400); RDW Standard Deviation 43.1 fL (36.4-46.3); Red Blood Count 4.12 M/uL (4.70-6.10); White Blood Count 14.83 K/ul (4.8-10.8)
[2025-06-07 06:39] LABS: Anion Gap 4.0 (3-11); Blood Urea Nitrogen 14.0 mg/dl (6-23); Calcium 8.4 mg/dl (8.6-10.3); Carbon Dioxide 23.0 mmol/L (21-32); Chloride 113.0 mmol/L (98-107); Creatinine Clr Calc Pharmacy 105.1 ml/min; Glucose 110.0 mg/dl (70-99(Fasting)); Potassium 4.2 mmol/L (3.5-5.1); Sodium 140.0 mmol/L (136-145)
[2025-06-07] MEDS: ACETAMINOPHEN 325 MG TAB PO PRN (07:31)
[2025-06-07] MEDS: ENOXAPARIN INJ 40 MG/0.4 ML SYR SQ SCH (08:18)
[2025-06-07] MEDS: ASPIRIN 81 MG ECTAB PO SCH (08:18)
[2025-06-07] MEDS: MULTIVITAMIN TAB PO SCH (08:18)
[2025-06-07 10:23] LABS: Hemoglobin A1C 5.5 % (4.5-5.6)
--- NOTE | 2025-06-07 14:07 | Hospitalist Progress Note ---
Date of Service June 07, 2025 Assessment & Plan (1) Sepsis: Plan: 59-year-old male with PMH of situational hypertension, HLD, YOMI status post inspire therapy, GERD, recurrent UTIs, mood disorder, ongoing tobacco abuse presents to the ED with complaint of not feeling well, fever, chills. Patient had asymptomatic UTIs in the past. Urinalysis in the ED was suggestive of UTI. He is being managed for the following: Severe sepsis SIRS plus lactic acidosis: repeat lactic acid within normal limits Secondary to complicated UTI Patient comes in with fever, chills. Admitting CXR and CTAP with no acute finding. Admitting UA suggestive of UTI. Continue with cefepime 06/07. Follow admitting blood and urine culture. Temperature is getting better, patient significantly feels better. Other chronic medical conditions: Continue with/resume home meds as and when able. hyperlipidemia, on statin Rx YOMI status post Inspire therapy mood disorder, stable Hyperglycemia ruled out DM, a1c 5.5 ongoing tobacco abuse, recommend smoking cessation. Nicotine patch as needed DVT prophylaxis with Lovenox subcu Full code Text document was generated using [employer] voice recognition software. It may contain grammatical or spelling errors. Kindly contact undersigned for clarification of any documentation item in question. Admission and Anticipated Discharge Date Admission Date: June 06, 2025 Subjective Patient was seen and examined at bedside. Patient was sitting up in chair, on room air, NAD, resting comfortably. Patient reports feeling significantly better, denies nausea/vomiting, denies diarrhea. Physical Exam Physical Exam: GENERAL: Comfortable, pleasant, obese, no respiratory distress SKIN: Normal color, warm HEENT: [place] palpebral conjunctivae, no ptosis, dry buccal mucosa NECK : Supple, no tenderness CHEST : CTA, no tenderness HEART : RRR, no obvious murmurs ABDOMEN: Some distention, nontender EXTREMITIES : No LE swelling/tenderness, palpable pulses, no other conspicuous deformities noted NEUROLOGIC : Coherent, no facial asymmetry, no other gross focality No CVA angle tenderness Results & Data Results & Data Vital Signs (Past 12 Hours) Vital Signs Temp Pulse Pulse Resp BP Pulse Ox O2 Del Method 06/07/25 11:25 36.6 C 69 18 145/85 H 99 Room Air 06/07/25 09:09 36.8 C 06/07/25 07:46 36.9 C 76 18 145/86 H 98 Room Air 06/07/25 05:17 68 06/07/25 04:00 36.5 C 69 18 131/79 97 Room Air
[2025-06-07] MEDS: LORATADINE 10 MG TAB PO SCH (20:22)
[2025-06-07] MEDS: ATORVASTATIN 40 MG TAB PO SCH (20:23)
--- NOTE | 2025-06-08 08:02 | Electrocardiogram Report ---
Test Reason : Blood Pressure : */* mmHG Vent. Rate : 107 BPM Atrial Rate : 107 BPM P-R Int : 174 ms QRS Dur : 94 ms QT Int : 326 ms P-R-T Axes : 56 12 40 degrees QTcB Int : 435 ms Sinus tachycardia Possible Left atrial enlargement Incomplete right bundle branch block Septal infarct , age undetermined Abnormal ECG When compared with ECG of 14-Sep-2022 14:05, Septal infarct is now Present Confirmed by Hannah Thomas (Sourav) on 06/08/2025 8:02:11 AM Referred By: REFERRED SELF Confirmed By: Hannah Thomas
[2025-06-08 08:04] LABS: Anion Gap 4.0 (3-11); Blood Urea Nitrogen 14.0 mg/dl (6-23); Calcium 8.5 mg/dl (8.6-10.3); Carbon Dioxide 24.0 mmol/L (21-32); Chloride 111.0 mmol/L (98-107); Creatinine Clr Calc Pharmacy 111.9 ml/min; Glucose 103.0 mg/dl (70-99(Fasting)); Magnesium 2.1 mg/dl (1.7-2.4); Potassium 4.0 mmol/L (3.5-5.1); Sodium 139.0 mmol/L (136-145)
[2025-06-08 08:31] LABS: Hematocrit (blood only) 36.4 % (42.0-52.0); Hemoglobin 12.3 g/dl (14.0-18.0); Mean Corpuscular Hemoglobin 29.6 pg (25.0-34.0); Mean Corpuscular Volume 87.7 fL (80.0-100.0); Platelet Count 97 K/uL (130-400); RDW Standard Deviation 43.6 fL (36.4-46.3); Red Blood Count 4.15 M/uL (4.70-6.10); White Blood Count 8.76 K/ul (4.8-10.8)
[2025-06-08] MEDS: ESCITALOPRAM OXALATE 10 MG TAB PO SCH (09:05)
[2025-06-08] MEDS: POT PHOSPHATE MONOBASIC W/ SOD TAB PO SCH (10:23)
[2025-06-08 11:49] VITALS: PULSE 60; RESP 17; TEMP 98.1; O2SAT 96
--- NOTE | 2025-06-08 12:04 | Discharge Summary ---
Date of Service June 08, 2025 Admission HPI Per Admitting Provider History obtained from patient and records. Medical history significant for situational hypertension, hyperlipidemia, YOMI status post Inspire therapy, GERD, recurrent UTIs, mood disorder, ongoing tobacco abuse. Last confinement September 2022 under [facility] Spine service for LSS status post decompression surgery. Patient woke up not feeling well this morning. Fever, chills without chest pain, SOB, abdominal pain, hematuria, dysuria, diarrhea symptoms. Has had asymptomatic UTIs in the past. Patient consulted local urgent care center. UA suggestive of UTI. Patient given ceftriaxone and discharged on cefdinir Rx. Patient consulted ER for worsening symptoms. IV vancomycin and cefepime administered at the ER. 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 Admission Exam Per Admitting Provider GENERAL: Comfortable, pleasant, obese, no respiratory distress SKIN: Normal color, warm HEENT: [place] palpebral conjunctivae, no ptosis, dry buccal mucosa NECK : Supple, no tenderness CHEST : CTA, no tenderness HEART : RRR, no obvious murmurs ABDOMEN: Some distention, nontender EXTREMITIES : No LE swelling/tenderness, palpable pulses, no other conspicuous deformities noted NEUROLOGIC : Coherent, no facial asymmetry, no other gross focality Principal Diagnosis Severe sepsis Secondary to complicated UTI Discharge Exam GENERAL: Comfortable, pleasant, obese, no respiratory distress SKIN: Normal color, warm HEENT: [place] palpebral conjunctivae, no ptosis, dry buccal mucosa NECK : Supple, no tenderness CHEST : CTA, no tenderness HEART : RRR, no obvious murmurs ABDOMEN: Some distention, nontender EXTREMITIES : No LE swelling/tenderness, palpable pulses, no other conspicuous deformities noted NEUROLOGIC : Coherent, no facial asymmetry, no other gross focality No CVA angle tenderness Discharge Data Allergies Allergy/AdvReac Type Severity Reaction Status Date / Time naproxen AdvReac Unknown "tears my Verified 06/06/25 20:40 stomach up bad" Consultations 06/06/25 20:35 ED Decision to Admit Stat Ordered Studies 06/06/25 18:17 CT abd pelvis IV con only Stat Hospital Course (1) Sepsis: 59-year-old male with PMH of situational hypertension, HLD, YOMI status post inspire therapy, GERD, recurrent UTIs, mood disorder, ongoing tobacco abuse presents to the ED with complaint of not feeling well, fever, chills. Patient had asymptomatic UTIs in the past. Urinalysis in the ED was suggestive of UTI. He was managed for the following: Severe sepsis SIRS plus lactic acidosis: repeat lactic acid within normal limits Secondary to complicated UTI Patient comes in with fever, chills. Admitting CXR and CTAP with no acute finding. Admitting UA suggestive of UTI. Continue with cefepime 06/07. to po atb on dc to complete 7 d therapy Follow admitting blood and urine culture. Urine Cx from OP test reviewed, not finalized. Pt advised to f/u on final results w/ pcp office within a week time. Pt has been afebrile and feels significantly better. Other chronic medical conditions: Continue with/resume home meds as and when able. hyperlipidemia, on statin Rx YOMI status post Inspire therapy mood disorder, stable Hyperglycemia ruled out DM, a1c 5.5 ongoing tobacco abuse, recommend smoking cessation. Nicotine patch as needed DVT prophylaxis with Lovenox subcu Full code Patient is being discharged home with following instructions at the point of discharge: Follow-up with your primary care physician within a week time and likely you will need labs CBC/CMP/magnesium/phosphorus. Follow up on final blood culture and urine culture results during your PCP visit within a week time. You will be discharged on antibiotic to complete the course for UTI. Take your medications as prescribed. Please make sure that you are able to get your medications today by calling your pharmacy before you leave the hospital so that your treatment continuity is not broken. Text document was generated using [employer] voice recognition software. It may contain grammatical or spelling errors. Kindly contact undersigned for clarification of any documentation item in question. Home Health Attestation I certify that this patient is under my care and that I, or a physicians assistant boiler operator working with me, had a face to-face encounter that meets the home health [id number] encounter requirements with this patient. The encounter with the patient was in whole, or in part, for the following medical condition, which is the primary reason for home health care (list medical condition): I certify that, based on my findings, the following services are medically necessary home health services: My clinical findings support the need for the above services because: Further, I certify that my clinical findings support that this patient is homebound (i.e. absences from home require considerable and taxing effort and are for medical reasons or congregation services or infrequently or of short duration when for other reasons) because: Certification for Home Health Services: Based on the above findings, I certify that this patient is confined to the home and needs intermittent [facility] care, physical therapy and/or speech therapy or continues to need occupational therapy. The patient is under my care, and I have initiated the establishment of the plan of care. This patient will be followed by a physician who will periodically review the plan of care. Total Time Total Time Spent Total Time Spent (In Minutes): 35 Discharge Plan Discharge Items Patient Disposition: Home - Self-Care Reason For Visit: SEPSIS Discharge Diagnosis: Severe sepsis Secondary to complicated UTI Condition on Discharge: Fair Activity: Resume your previous activity Non-emergency contact: Primary Care Provider Call non-emergency contact if: you have any medication questions Follow-up/Referrals: Ad Sanders MD [Primary Care Provider] - Diet: Regular Addtl Attending Provider Instructions: Follow-up with your primary care physician within a week time and likely you will need labs CBC/CMP/magnesium/phosphorus. Follow up on final blood culture and urine culture results during your PCP visit within a week time. You will be discharged on antibiotic to complete the course for UTI. Take your medications as prescribed. Please make sure that you are able to get your medications today by calling your pharmacy before you leave the hospital so that your treatment continuity is not broken. Pending Studies at Discharge: Yes Stand-Alone Forms: [facility] Medications and DC Order Prescriptions: New atorvastatin 40 mg Tablet 40 mg PO HS Qty: 30 0RF escitalopram oxalate 10 mg Tablet 10 mg PO QAM Qty: 30 0RF cefdinir 300 mg capsule 300 mg PO BID 5 Days Qty: 10 0RF Continued aspirin 81 mg Tablet,Chewable 81 mg PO QAM loratadine [Claritin] 10 mg Tablet 10 mg PO HS coenzyme Q10 [CoQ-10] 100 mg Capsule 100 mg PO QAM omeprazole magnesium [Prilosec OTC] 20 mg Tablet,Delayed Release (Dr/Ec) 20 mg PO QAM multivitamin Tablet 1 tab PO QAM Neutrifol 4 tabs PO QDB Discontinued atorvastatin 20 mg Tablet 20 mg PO HS Discharge Orders: Discharge Order (Routine); Ordered 06/08/25 Ordered By: Otoniel Lincoln Admission Data Admit Date/Time: 06/06/25 20:44 Attending Provider: Otoniel Lincoln Admit Provider: Omid Baca Primary Care Provider: Ad Sanders Other Providers: Omid Baca
[2025-06-08 12:07] VITALS: BP 151/87
== END 2025-06-08 13:44 | disposition home or self-care (01) | DRG 872 ==
LOC: ED 17:47 → 2N 20:44 → INTOOBSV 20:44 → 2N 21:58